=== PATIENT | male | born 1950 | race African-American/Black ===

== ENCOUNTER 2016-11-04 10:16 | Inpatient (IN) | payer OTHER ==
[2016-11-04 11:28] VITALS: BMI 25.9
--- NOTE | 2016-11-04 14:56 | HP ---
COWS - Scale Resting Pulse: 1= [place] 81-100 Sweatin=Flushed/Facial Moisture Restless Observation: 3= Extraneous Movement Pupil Size: 2= Moderately Dilated Bone or Joint Aches: 2= Severe Diffuse Aches Runny Nose/ Eye Tearin= Runny Nose/Eyes GI Upset > 30mins: 3= Vomiting/Diarrhea Tremor Observation: 2= Slight Tremor Visible Yawning Observation: 2= >3x During Session Anxiety or Irritability: 2=Irritable/Anxious Goose Flesh Skin: 0=Smooth Skin COWS Score: 21 Admission ROS BHS - HPI Chief Complaint: i need help to stop using heroin Allergies/Adverse Reactions: Allergies Allergy/AdvReac Type Severity Reaction Status Date / Time Penicillins Allergy Hives Verified 11/04/16 12:20 History of Present Illness: THIS 66 YEARS OLD BLACK MALE WITH HEROIN DEPENDENCE,WITHDRAWAL SYMPTOM,LAST DETOX 02/27 [facility] BLINDNESS HIV SINCE 1988 HEPATITIS C LONGEST PERIOD OF SOBRIETY 9 MONTHS - Ebola screening Have you traveled outside of the country in the last 21 days: No (N) Have you had contact with anyone from an Ebola affected area: No Have you been sick,other than usual withdrawal symptoms: No Do you have a fever: No - Review of Systems Constitutional: Chills, Loss of Appetite, Night Sweats, Weakness, Unintentional Wgt. Loss EENT: reports: Hearing Loss, Nose Congestion, Other (BLINDNESS BOTH) Respiratory: reports: No Symptoms reported Cardiac: reports: No Symptoms Reported GI: reports: Diarrhea, Abdominal cramping : reports: No Symptoms Reported Musculoskeletal: reports: Back Pain, Joint Pain, Muscle Pain, Joint Stiffness Integumentary: reports: Dryness Neuro: reports: Headache, Tremors Endocrine: reports: No Symptoms Reported Hematology: reports: No Symptoms Reported Psychiatric: reports: No Sypmtoms Reported, other (INSOMNIA) Patient History - Patient Medical History Hx Anemia: No Hx Asthma: No Hx Chronic Obstructive Pulmonary Disease (COPD): No Hx Cancer: No Hx Cardiac Disorders: No Hx Congestive Heart Failure: No Hx Hypertension: Yes (norvasc 5 mg daily) Hx Hypercholesterolemia: No Hx Pacemaker: No HX Cerebrovascular Accident: No Hx Seizures: No Hx Dementia: No Hx Diabetes: No Hx Gastrointestinal Disorders: No Hx Liver Disease: Yes Hx Genitourinary Disorders: No Hx Sexually Transmitted Disorders: No Hx Renal Disease (ESRD): No Hx Thyroid Disease: No Hx Human Immunodeficiency Virus (HIV): Yes (SINCE 1989) Hx Hepatitis C: Yes (treated) Hx Depression: Yes Hx Suicide Attempt: No Hx Bipolar Disorder: No Hx Schizophrenia: No Other Medical History: INSOMNIA,NO HOMICIDAL,NO SUICIDAL - Patient Surgical History Past Surgical History: Yes Hx Neurologic Surgery: No Hx Cataract Extraction: No Hx Cardiac Surgery: No Hx Lung Surgery: No Hx Breast Surgery: No Hx Breast Biopsy: No Hx Abdominal Surgery: No Hx Appendectomy: No Hx Cholecystectomy: No Hx Genitourinary Surgery: No Hx Section: No Hx Orthopedic Surgery: Yes (right ankle broken 90's has screws placed) Other Surgical History: detached retina/14 eye surgeries Anesthesia Reaction: No - PPD History Previous Implant?: Yes Documented Results: Negative w/o proof Date: 05/11/15 Results: 0 mm PPD to be Administered?: Yes - Smoking Cessation Smoking history: Current every day smoker Have you smoked in the past 12 months: Yes Aproximately how many cigarettes per day: 6 Cigars Per Day: 0 Hx Chewing Tobacco Use: No Initiated information on smoking cessation: Yes 'Breaking Loose' booklet given: 11/04/16 - Substance & Tx. History Hx Alcohol Use: No Hx Substance Use: Yes Substance Use Type: Cocaine, Heroin, Marijuana - Substances Abused Heroin Route: Inhalation Frequency: Daily Amount used: 5-6 bags Age of first use: 16 Date of Last Use: 11/03/16 Cocaine Route: Inhalation Frequency: Daily Amount used: 50$ Age of first use: 16 Date of Last Use: 10/21/16 Marijuana/Hashish Route: Smoking Frequency: 1-2 times per week Amount used: 5$ Age of first use: 18 Date of Last Use: 10/28/16 Family Disease History - Family Disease History Family History: Denies Family Disease History: Other: Grandparent (blindness), Father, Mother Admission Physical Exam S - Vital Signs Vital Signs: Vital Signs - 24 hr 11/04/16 11:25 Temperature 96.6 F L Pulse Rate 73 Respiratory 20 Rate Blood Pressure 127/74 - Physical General Appearance: Yes: Moderate Distress, Tremorous, Irritable, Sweating, Anxious HEENTM: Yes: Nasal Congestion, Other (BLINDNESS) Respiratory: Yes: Lungs Clear Neck: Yes: Within Normal Limits Breast: Yes: Within Normal Limits Cardiology: Yes: Within Normal Limits, Regular Rhythm, Regular Rate, S1, S2 Abdominal: Yes: Normal Bowel Sounds, Non Tender, Flat, Soft Genitourinary: Yes: Within Normal Limits Back: Yes: Muscle Spasm Musculoskeletal: Yes: Back pain, Joint Stiffness, Muscle Pain Extremities: Yes: Tremors Neurological: Yes: lift builder whole II-XII NML intact, Fully Oriented, Alert, Motor Strength 5/5 Integumentary: Yes: Dry Lymphatic: Yes: Within Normal Limits - Diagnostic (1) Opioid dependence with withdrawal Current Visit: Yes Status: Acute (2) Blindness, legal Current Visit: No Status: Chronic Comment: no current treatment (3) HIV disease Current Visit: No Status: Chronic Comment: on meds, followed by [facility] (4) Hepatitis C infection Current Visit: No Status: Chronic Comment: treated (5) Hypertension Current Visit: No Status: Chronic Comment: on meds, stable (6) Nicotine dependence Current Visit: No Status: Chronic Qualifiers: Nicotine product type: cigarettes Substance use status: uncomplicated Qualified Code(s): F17.210 - Nicotine dependence, cigarettes, uncomplicated Comment: counseled cessation - he is trying to cut down - plans to quit on his birthday Cleared for Admission [facility] - Detox or Rehab [facility] Level of Care: Medically Managed Detox Regimen/Protocol: Methadone [facility] Breath Alcohol Content Breath Alcohol Content: 0 Urine Drug Screen - Results Urine Drug Screen Results: THC-Marijuana, ELY-Cocaine, OPI-Opiates, OXY- Oxycodone
[2016-11-04] MEDS ORDERED: IBUPROFEN 400 MG TABLET (FP) PO PRN (15:07)
[2016-11-04] MEDS ORDERED: MAGNESIUM CITRATE 300 ML BOTTLE PO PRN (15:07)
[2016-11-04] MEDS ORDERED: LOPERAMIDE HCL 2 MG CAPSULE PO PRN (15:07)
[2016-11-04] MEDS ORDERED: MAGNESIUM HYDROX 2400MG/30ML ORAL SUSPENSION 30 ML CUP PO PRN (15:07)
[2016-11-04] MEDS ORDERED: MENTHOL/PHENOL 1 EACH UD MM PRN (15:07)
[2016-11-04] MEDS ORDERED: diphenhydrAMINE HCL 50 MG CAPSULE PO PRN (15:07)
[2016-11-04] MEDS ORDERED: guaiFENesin/D-METHORPHAN HB 10 ML UNIT-DOSE CUPS PO PRN (15:07)
[2016-11-04] MEDS ORDERED: P-EPHED 60MG/TRIPROLIDI 2.5MG TABLET PO PRN (15:07)
[2016-11-04] MEDS ORDERED: MAG HYDROX/AL HYDROX/SIMETH 30 ML UNIT-DOSE CUP PO PRN (15:07)
[2016-11-04] MEDS ORDERED: ACETAMINOPHEN 325 MG TABLET (FP) PO PRN (15:07)
[2016-11-04] MEDS ORDERED: PATIENT'S OWN MEDICATION (NON-FORMULARY) (Diclofenac Sodium [Voltaren] 100 GM) TP PRN (15:14)
[2016-11-04] MEDS ORDERED: AMMONIUM LACTATE 12% LOTION 225 GM BOTTLE TP SCH (15:15)
[2016-11-04] MEDS ORDERED: METHADONE HCL 10 MG TABLET (FOR DETOX USE ONLY) PO ONE ×2 (15:16→23:00)
[2016-11-04] MEDS: diazePAM 5 MG TABLET PO PRN ×2 (15:45→20:03)
[2016-11-04] MEDS ORDERED: NICOTINE POLACRILEX 2 MG GUM BUC PRN (17:28)
[2016-11-04 18:14] LABS: URINE APPEARANCE CLEAR; URINE BILIRUBIN NEGATIVE (NEGATIVE); URINE BLOOD NEGATIVE (NEGATIVE); URINE COLOR YELLOW; URINE GLUCOSE (UA) NEGATIVE (NEGATIVE); URINE KETONE NEGATIVE (NEGATIVE); URINE NITRITE NEGATIVE (NEGATIVE); URINE PROTEIN NEGATIVE (NEGATIVE); URINE UROBILINOGEN NEGATIVE E.U./dl (0.2-1.0)
[2016-11-04 18:16] LABS: URINE LEUK ESTERASE 1+ (NEGATIVE)
[2016-11-04 18:18] LABS: URINE RBC 1 /hpf (0-3); URINE WBC 13 /hpf (3-5)
[2016-11-04] MEDS: METHYL SALICYLATE/MENTHOL OINT 30 GM TUBE TP SCH (20:04)
[2016-11-04] MEDS: THIAMINE HCL 100 MG TABLET (FP) PO SCH (22:36)
[2016-11-04] MEDS: HYDROCORTISONE 1% TOPICAL CREAM 30 GM TUBE TP SCH (22:36)
[2016-11-04] MEDS: AMMONIUM LACTATE 12% LOTION 225 GM BOTTLE TP SCH (22:37)
[2016-11-05] MEDS: diazePAM 5 MG TABLET PO PRN ×5 (01:29→22:25)
[2016-11-05] MEDS ORDERED: METHADONE HCL 10 MG TABLET (FOR DETOX USE ONLY) PO ONE (10:00)
[2016-11-05 10:13] LABS: MCH 31.6 pg (25.7-33.7); MCHC 33.3 g/dl (32.0-35.9); MEAN CELL VOLUME 94.7 fl (80-96); MEAN PLT VOLUME 10.4 fl (7.5-11.1); PLATELET COUNT 110 K/MM3 (134-434); RDW 14.6 % (11.9-15.9)
[2016-11-05] MEDS: HYDROCORTISONE 1% TOPICAL CREAM 30 GM TUBE TP SCH ×2 (10:31→22:26)
[2016-11-05 10:32] LABS: ALBUMIN 3.1 g/dl (3.4-5.0); BILIRUBIN,TOTAL 0.3 mg/dL (0.2-1.0); CALCIUM 8.2 mg/dL (8.5-10.1); CREATININE 1.3 mg/dL (0.7-1.3); TOT PROT 6.3 g/dl (6.4-8.2)
[2016-11-05] MEDS: PRENATAL VITAMINS W/ FOLIC ACID TABLET (FP) PO SCH (10:32)
[2016-11-05] MEDS: CHOLECALCIFEROL (VITAMIN D3) 400 UNIT TABLET (FP) PO SCH (10:32)
[2016-11-05] MEDS: METHYL SALICYLATE/MENTHOL OINT 30 GM TUBE TP SCH (10:32)
[2016-11-05] MEDS: amLODIPine BESYLATE 5 MG TABLET (FP) PO SCH (10:32)
[2016-11-05] MEDS: NICOTINE 14 MG/24 HOURS TOPICAL PATCH TD SCH (10:33)
[2016-11-05] MEDS: AMMONIUM LACTATE 12% LOTION 225 GM BOTTLE TP SCH ×2 (10:34→22:26)
--- NOTE | 2016-11-05 11:20 | PN ---
S COWS - Scale Resting Pulse: 0= [place] 80 or Below Sweatin= Chills/Flushing Restless Observation: 3= Extraneous Movement Pupil Size: 2= Moderately Dilated Bone or Joint Aches: 4=Acute Joint/Muscle Pain Runny Nose/ Eye Tearin= Nasal Congestion GI Upset > 30mins: 1= Stomach Cramp Tremor Observation of Outstretched Hands: 2= Slight Tremor Visible Yawning Observation: 1= 1-2x During Session Anxiety or Irritability: 2=Irritable/Anxious Goose Flesh Skin: 0=Smooth Skin COWS Score: 17 BHS Progress Note (SOAP) Subjective: ANXIETY,SWEATS, RESONDING WELL TO DETOX PROTOCOL. LEGALLY BLIND AND WALKS WITH GUIDE STICK. Objective: 11/05/16 11:19 Vital Signs Temperature 96.0 F L 11/05/16 06:44 Pulse Rate 72 11/05/16 11:10 Respiratory Rate 18 11/05/16 11:10 Blood Pressure 111/72 11/05/16 11:10 O2 Sat by Pulse Oximetry (%) Laboratory Last Values WBC 6.0 K/mm3 (4.0-10.0) 11/05/16 08:00 RBC 4.09 M/mm3 (4.00-5.60) 11/05/16 08:00 Hgb 12.9 GM/dL (11.7-16.9) 11/05/16 08:00 Hct 38.7 % (35.4-49) 11/05/16 08:00 MCV 94.7 fl (80-96) 11/05/16 08:00 MCHC 33.3 g/dl (32.0-35.9) 11/05/16 08:00 RDW 14.6 % (11.9-15.9) 11/05/16 08:00 Plt Count 110 K/MM3 (134-434) L 11/05/16 08:00 MPV 10.4 fl (7.5-11.1) D 11/05/16 08:00 Sodium 140 mmol/L (136-145) 11/05/16 08:00 Potassium 4.2 mmol/L (3.5-5.1) 11/05/16 08:00 Chloride 105 mmol/L (98-107) 11/05/16 08:00 Carbon Dioxide 27 mmol/L (21-32) 11/05/16 08:00 Anion Gap 8 (8-16) 11/05/16 08:00 BUN 17 mg/dL (7-18) D 11/05/16 08:00 Creatinine 1.3 mg/dL (0.7-1.3) D 11/05/16 08:00 Creat Clearance w eGFR 55.58 (>60) 11/05/16 08:00 Random Glucose 128 mg/dL (74-106) H D 11/05/16 08:00 Calcium 8.2 mg/dL (8.5-10.1) L 11/05/16 08:00 Total Bilirubin 0.3 mg/dL (0.2-1.0) D 11/05/16 08:00 AST 12 U/L (15-37) L D 11/05/16 08:00 ALT 13 U/L (12-78) 11/05/16 08:00 Alkaline Phosphatase 56 U/L (45-117) 11/05/16 08:00 Total Protein 6.3 g/dl (6.4-8.2) L 11/05/16 08:00 Albumin 3.1 g/dl (3.4-5.0) L 11/05/16 08:00 Urine Color Yellow 11/04/16 17:00 Urine Appearance Clear 11/04/16 17:00 Urine pH 5.0 (5.0-8.0) 11/04/16 17:00 Ur Specific [place] 1.020 (1.001-1.035) 11/04/16 17:00 Urine Protein Negative (NEGATIVE) 11/04/16 17:00 Urine Glucose (UA) Negative (NEGATIVE) 11/04/16 17:00 Urine Ketones Negative (NEGATIVE) 11/04/16 17:00 Urine Blood Negative (NEGATIVE) 11/04/16 17:00 Urine Nitrite Negative (NEGATIVE) 11/04/16 17:00 Urine Bilirubin Negative (NEGATIVE) 11/04/16 17:00 Urine Urobilinogen Negative E.U./dl (0.2-1.0) 11/04/16 17:00 Ur Leukocyte Esterase 1+ (NEGATIVE) H 11/04/16 17:00 Urine RBC 1 /hpf (0-3) 11/04/16 17:00 Urine WBC 13 /hpf (3-5) 11/04/16 17:00 Ur Epithelial Cells Rare /hpf (FEW) 11/04/16 17:00 Assessment: 11/05/16 11:19 WITHDRAWAL SX Plan: CONTINUE DETOX REPEAT UA TODAY. MAINTAIN SAFETY.
--- NOTE | 2016-11-05 12:52 | CONSULT ---
[facility] Psychiatric Consult - Data Date of interview: 11/05/16 Admission source: [facility] Identifying data: Readmission to [facility] for this 66 y/o AA male seeking detox treatment on for heroin,cocaine and marijuana dependence.Patient is ,a father of two,domiciled,disabled and supported on his nursing home benefits. Substance Abuse History: - Smoking Cessation. Smoking history: Current every day smoker. Have you smoked in the past 12 months: Yes. Aproximately how many cigarettes per day: 6. Cigars Per Day: 0. Hx Chewing Tobacco Use: No. Initiated information on smoking cessation: Yes. 'Breaking Loose' booklet given : 11/04/16. - Substance & Tx. History. Hx Alcohol Use: No. Hx Substance Use: Yes. Substance Use Type: Cocaine, Heroin, Marijuana. - Substances Abused. Heroin. Route: Inhalation. Frequency: Daily. Amount used: 5-6 bags. Age of first use: 16. Date of Last Use: 11/03/16. Cocaine. Route: Inhalation. Frequency: Daily. Amount used: 50$. Age of first use: 16. Date of Last Use: 10/21/16. Marijuana/Hashish. Route: Smoking. Frequency: 1-2 times per week. Amount used: 5$. Age of first use: 18. Date of Last Use: 10/28/16. Confirmed by the patient in this interview. 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 Psychiatric History: Patient denies history of psychiatric hospitalizations.He is followed at the [facility] (Dr Samra Conti) on a regimen of remeron 15 mg/hs + seroquel 25 mg/hs + zolpidem 10 mg/hs.No history of suicide attempts. Physical/Sexual Abuse/Trauma History: Patient denies. Additional Comment: Urine Drug Screen Results: THC-Marijuana, ELY-Cocaine, OPI- Opiates, OXY-Oxycodone.Noted. Mental Status Exam - Mental Status Exam Alert and Oriented to: Time, Place, Person Cognitive Function: Good Patient Appearance: Well Groomed Mood: Hopeful, Euthymic Affect: Normal Range Patient Behavior: Appropriate, Cooperative (friendly on approach) Speech Pattern: Clear Voice Loudness: Normal Thought Process: Goal Oriented Thought Disorder: Not Present Hallucinations: Denies Suicidal Ideation: Denies Homicidal Ideation: Denies Insight/Judgement: Poor (evidenced by his continuous use of drugs despite his knowledge about the consequences) Sleep: Fair Appetite: Good Muscle strength/Tone: Normal Gait/Station: Other (uses a cane to find directions due to blindness) Psychiatric Findings - Problem List ([place] 1, 2,3) (1) Opioid dependence with withdrawal Current Visit: Yes Status: Acute (2) Nicotine dependence Current Visit: Yes Status: Acute Qualifiers: Nicotine product type: cigarettes Substance use status: uncomplicated Qualified Code(s): F17.210 - Nicotine dependence, cigarettes, uncomplicated Comment: counseled cessation - he is trying to cut down - plans to quit on his birthday (3) Cocaine dependence Current Visit: Yes Status: Acute (4) Marijuana dependence Current Visit: Yes Status: Acute (5) Back pain Current Visit: Yes Status: Chronic Comment: MRI results of 08/15 reviewed (disc dessication, facet hypertrophy, thickened ligamentum flavum, spondylosis, osteophytes, spinal stenosis), cont voltaren, anti-inflammatory diet tylenol, discussed gentle stretches and sit ups which he is now willing to do , did PT in past but did not help) off opiates due to aberrant toxicology MRI results noted and reviewed with patient who wishes to continue voltaren gel - obtained and using lumbar brace, uses mother's heating pad, does not want flexeril or other muscle relaxers or celebrex "I'm fine with what I'm on" (6) Blindness, legal Current Visit: Yes Status: Chronic Comment: no current treatment (7) Depressive disorder Current Visit: Yes Status: Chronic (8) HIV disease Current Visit: Yes Status: Chronic Comment: on meds, [facility] by [facility] (9) Hepatitis C infection Current Visit: Yes Status: Chronic Comment: treated (10) Hypertension Current Visit: Yes Status: Chronic Comment: on meds, stable (11) Musculoskeletal pain Current Visit: Yes Status: Chronic Comment: antiinflammatory diet reviewed -he will try to make one change: increase his 'greens' - Initial Treatment Plan Initial Treatment Plan: Psychoeducation.Detoxification.Medications :seroquel 25 mg po hs + mirtazapine 15 mg po hs.Zolpidem is held until further orders.Side effects/benefits discusssed with the patient.Made aware of the risk of accidental falls from sedation and advised to alert staff if drowsiness/ lighthadedness.Patient agrees to follow this treatment course.Observation.Fall precautions.Previous notes from Dr Tyler are reviewed.Medications verified.No scripts necessary at discharge (refills already available).
[2016-11-05 13:28] LABS: URINE APPEARANCE CLEAR; URINE BILIRUBIN NEGATIVE (NEGATIVE); URINE BLOOD NEGATIVE (NEGATIVE); URINE COLOR LTYELLOW; URINE GLUCOSE (UA) NEGATIVE (NEGATIVE); URINE KETONE NEGATIVE (NEGATIVE); URINE NITRITE NEGATIVE (NEGATIVE); URINE PROTEIN NEGATIVE (NEGATIVE); URINE UROBILINOGEN NEGATIVE E.U./dl (0.2-1.0)
[2016-11-05 13:40] LABS: URINE LEUK ESTERASE TRACE (NEGATIVE)
[2016-11-05 13:55] LABS: URINE MUCUS RARE; URINE RBC <1 /hpf (0-3); URINE WBC 1 /hpf (3-5)
--- NOTE | 2016-11-05 21:36 | EKG ---
Test Reason : Blood Pressure : / mmHG Vent. Rate : 060 BPM Atrial Rate : 060 BPM P-R Int : 156 ms QRS Dur : 084 ms QT Int : 436 ms P-R-T Axes : 052 048 059 degrees QTc Int : 436 ms NORMAL SINUS RHYTHM NORMAL ECG WHEN COMPARED WITH ECG OF 31-JUL-2012 01:50, NO SIGNIFICANT CHANGE WAS FOUND Confirmed by YEISON KLEIN MD ([id number]) on 11/05/2016 9:35:51 PM Referred By: Confirmed By:YEISON KLEIN MD
[2016-11-05] MEDS: THIAMINE HCL 100 MG TABLET (FP) PO SCH (22:25)
[2016-11-05] MEDS: MIRTAZAPINE 15 MG TABLET (FP) PO SCH (22:25)
[2016-11-05] MEDS: QUEtiapine FUMARATE 25 MG TABLET (FP) PO SCH (22:25)
[2016-11-06] MEDS: diazePAM 5 MG TABLET PO PRN ×3 (03:56→15:08)
[2016-11-06] MEDS ORDERED: METHADONE HCL 5 MG TABLET (FOR DETOX USE ONLY) PO ONE (10:00)
[2016-11-06] MEDS: PRENATAL VITAMINS W/ FOLIC ACID TABLET (FP) PO SCH (10:35)
[2016-11-06] MEDS: METHYL SALICYLATE/MENTHOL OINT 30 GM TUBE TP SCH (10:35)
[2016-11-06] MEDS: amLODIPine BESYLATE 5 MG TABLET (FP) PO SCH (10:35)
[2016-11-06] MEDS: HYDROCORTISONE 1% TOPICAL CREAM 30 GM TUBE TP SCH ×2 (10:35→22:41)
[2016-11-06] MEDS: AMMONIUM LACTATE 12% LOTION 225 GM BOTTLE TP SCH ×2 (10:36→22:41)
[2016-11-06] MEDS: NICOTINE 14 MG/24 HOURS TOPICAL PATCH TD SCH (10:36)
[2016-11-06] MEDS: CHOLECALCIFEROL (VITAMIN D3) 400 UNIT TABLET (FP) PO SCH (11:30)
--- NOTE | 2016-11-06 11:42 | PN ---
S COWS - Scale Resting Pulse: 0= [place] 80 or Below Sweatin= Chills/Flushing Restless Observation: 3= Extraneous Movement Pupil Size: 2= Moderately Dilated Bone or Joint Aches: 4=Acute Joint/Muscle Pain Runny Nose/ Eye Tearin= Nasal Congestion GI Upset > 30mins: 1= Stomach Cramp Tremor Observation of Outstretched Hands: 1= Tremor [place], Not Seen Yawning Observation: 1= 1-2x During Session Anxiety or Irritability: 2=Irritable/Anxious Goose Flesh Skin: 0=Smooth Skin COWS Score: 16 S Progress Note (SOAP) Subjective: ANXIETY,SWEATS/CHILLS. Objective: 11/06/16 11:38 Vital Signs Temperature 77 F L 11/06/16 10:50 Pulse Rate 77 11/06/16 10:50 Respiratory Rate 20 11/06/16 10:50 Blood Pressure 112/77 11/06/16 10:50 O2 Sat by Pulse Oximetry (%) Laboratory Last Values WBC 6.0 K/mm3 (4.0-10.0) 11/05/16 08:00 RBC 4.09 M/mm3 (4.00-5.60) 11/05/16 08:00 Hgb 12.9 GM/dL (11.7-16.9) 11/05/16 08:00 Hct 38.7 % (35.4-49) 11/05/16 08:00 MCV 94.7 fl (80-96) 11/05/16 08:00 MCHC 33.3 g/dl (32.0-35.9) 11/05/16 08:00 RDW 14.6 % (11.9-15.9) 11/05/16 08:00 Plt Count 110 K/MM3 (134-434) L 11/05/16 08:00 MPV 10.4 fl (7.5-11.1) D 11/05/16 08:00 Sodium 140 mmol/L (136-145) 11/05/16 08:00 Potassium 4.2 mmol/L (3.5-5.1) 11/05/16 08:00 Chloride 105 mmol/L (98-107) 11/05/16 08:00 Carbon Dioxide 27 mmol/L (21-32) 11/05/16 08:00 Anion Gap 8 (8-16) 11/05/16 08:00 BUN 17 mg/dL (7-18) D 11/05/16 08:00 Creatinine 1.3 mg/dL (0.7-1.3) D 11/05/16 08:00 Creat Clearance w eGFR 55.58 (>60) 11/05/16 08:00 Random Glucose 128 mg/dL (74-106) H D 11/05/16 08:00 Calcium 8.2 mg/dL (8.5-10.1) L 11/05/16 08:00 Total Bilirubin 0.3 mg/dL (0.2-1.0) D 11/05/16 08:00 AST 12 U/L (15-37) L D 11/05/16 08:00 ALT 13 U/L (12-78) 11/05/16 08:00 Alkaline Phosphatase 56 U/L (45-117) 11/05/16 08:00 Total Protein 6.3 g/dl (6.4-8.2) L 11/05/16 08:00 Albumin 3.1 g/dl (3.4-5.0) L 11/05/16 08:00 Urine Color [place] 11/05/16 12:15 Urine Appearance Clear 11/05/16 12:15 Urine pH 6.0 (5.0-8.0) 11/05/16 12:15 Ur Specific [place] 1.010 (1.001-1.035) 11/05/16 12:15 Urine Protein Negative (NEGATIVE) 11/05/16 12:15 Urine Glucose (UA) Negative (NEGATIVE) 11/05/16 12:15 Urine Ketones Negative (NEGATIVE) 11/05/16 12:15 Urine Blood Negative (NEGATIVE) 11/05/16 12:15 Urine Nitrite Negative (NEGATIVE) 11/05/16 12:15 Urine Bilirubin Negative (NEGATIVE) 11/05/16 12:15 Urine Urobilinogen Negative E.U./dl (0.2-1.0) 11/05/16 12:15 Ur Leukocyte Esterase Trace (NEGATIVE) H 11/05/16 12:15 Urine RBC <1 /hpf (0-3) 11/05/16 12:15 Urine WBC 1 /hpf (3-5) 11/05/16 12:15 Ur Epithelial Cells Rare /hpf (FEW) 11/05/16 12:15 Urine Mucus Rare 11/05/16 12:15 RPR Titer Nonreactive (NONREACTIVE) 11/05/16 08:00 REPEAT UA SLIGHT IMPROVEMENT UC PENDING Assessment: 11/06/16 11:42 WITHDRAWAL SX Plan: CONTINUE DETOX
[2016-11-06] MEDS: THIAMINE HCL 100 MG TABLET (FP) PO SCH (22:41)
[2016-11-06] MEDS: QUEtiapine FUMARATE 25 MG TABLET (FP) PO SCH (22:41)
[2016-11-06] MEDS: MIRTAZAPINE 15 MG TABLET (FP) PO SCH (22:41)
[2016-11-07] MEDS: diazePAM 5 MG TABLET PO PRN (06:00)
[2016-11-07] MEDS ORDERED: METHADONE HCL 5 MG TABLET (FOR DETOX USE ONLY) PO ONE (10:00)
[2016-11-07] MEDS: amLODIPine BESYLATE 5 MG TABLET (FP) PO SCH (11:06)
[2016-11-07] MEDS: PRENATAL VITAMINS W/ FOLIC ACID TABLET (FP) PO SCH (11:06)
[2016-11-07] MEDS: METHYL SALICYLATE/MENTHOL OINT 30 GM TUBE TP SCH (11:06)
[2016-11-07] MEDS: NICOTINE 14 MG/24 HOURS TOPICAL PATCH TD SCH (11:07)
[2016-11-07] MEDS: HYDROCORTISONE 1% TOPICAL CREAM 30 GM TUBE TP SCH ×2 (11:07→22:35)
[2016-11-07] MEDS: CHOLECALCIFEROL (VITAMIN D3) 400 UNIT TABLET (FP) PO SCH (11:07)
[2016-11-07] MEDS: AMMONIUM LACTATE 12% LOTION 225 GM BOTTLE TP SCH ×2 (11:07→22:36)
--- NOTE | 2016-11-07 11:31 | PN ---
BHS Progress Note (SOAP) Subjective: DETOX PROCEEDING WELL, DECREASED ANXIETY,TREMORS. Objective: 11/07/16 11:30 Vital Signs Temperature 95.8 F L 11/07/16 06:50 Pulse Rate 90 11/07/16 10:06 Respiratory Rate 18 11/07/16 10:06 Blood Pressure 130/86 11/07/16 10:06 O2 Sat by Pulse Oximetry (%) Assessment: 11/07/16 11:30 WITHDRAWAL SX Plan: CONTINUE DETOX
[2016-11-07] MEDS: THIAMINE HCL 100 MG TABLET (FP) PO SCH (22:35)
[2016-11-07] MEDS: MIRTAZAPINE 15 MG TABLET (FP) PO SCH (22:35)
[2016-11-07] MEDS: QUEtiapine FUMARATE 25 MG TABLET (FP) PO SCH (22:35)
[2016-11-08] MEDS ORDERED: METHADONE HCL 10 MG TABLET (FOR DETOX USE ONLY) PO ONE (10:00)
[2016-11-08] MEDS: amLODIPine BESYLATE 5 MG TABLET (FP) PO SCH (10:53)
[2016-11-08] MEDS: METHYL SALICYLATE/MENTHOL OINT 30 GM TUBE TP SCH (10:53)
[2016-11-08] MEDS: HYDROCORTISONE 1% TOPICAL CREAM 30 GM TUBE TP SCH ×2 (10:53→22:51)
[2016-11-08] MEDS: AMMONIUM LACTATE 12% LOTION 225 GM BOTTLE TP SCH ×2 (10:53→22:52)
[2016-11-08] MEDS: CHOLECALCIFEROL (VITAMIN D3) 400 UNIT TABLET (FP) PO SCH (10:54)
[2016-11-08] MEDS: PRENATAL VITAMINS W/ FOLIC ACID TABLET (FP) PO SCH (10:54)
[2016-11-08] MEDS: NICOTINE 14 MG/24 HOURS TOPICAL PATCH TD SCH (10:54)
--- NOTE | 2016-11-08 11:23 | PN ---
BHS Progress Note (SOAP) Subjective: DECREASED ANXIETY,TREMORS,SWEATS. Objective: 11/08/16 11:23 Vital Signs Temperature 96.2 F L 11/08/16 10:52 Pulse Rate 83 11/08/16 10:52 Respiratory Rate 20 11/08/16 10:52 Blood Pressure 119/77 11/08/16 10:52 O2 Sat by Pulse Oximetry (%) Assessment: 11/08/16 11:23 DECREASED WITHDRAWAL SX Plan: CONTINUE DETOX
[2016-11-08] MEDS: QUEtiapine FUMARATE 25 MG TABLET (FP) PO SCH (22:52)
[2016-11-08] MEDS: THIAMINE HCL 100 MG TABLET (FP) PO SCH (22:52)
[2016-11-08] MEDS: MIRTAZAPINE 15 MG TABLET (FP) PO SCH (22:52)
[2016-11-09] MEDS ORDERED: METHADONE HCL 5 MG TABLET (FOR DETOX USE ONLY) PO ONE (06:00)
[2016-11-09 09:57] VITALS: BP 123/84; PULSE 87; TEMP 98.2
--- NOTE | 2016-11-09 10:28 | DS ---
[facility] Detox Discharge Summary Admission Date: 11/04/16 Discharge Date: 11/09/16 - History Present History: Cocaine Dependence, Opioid Dependence Pertinent Past History: Blindness HIV Hep C (Treated) HTN Smoker Back Pain - Physical Exam Results Vital Signs: Vital Signs Temperature 98.2 F 11/09/16 09:56 Pulse Rate 87 11/09/16 09:56 Respiratory Rate 18 11/09/16 09:56 Blood Pressure 123/84 11/09/16 09:56 O2 Sat by Pulse Oximetry (%) Pertinent Admission Physical Exam Findings: Withdrawal Symptoms - Treatment Hospital Course: Detox Protocol Followed, Detoxed Safely, Responded well, Discharged Condition Good - Medication Discharge Medications: Ambulatory Orders Abacavir/Dolutegravir/Lamivudi [Triumeq Tablet] 1 each PO DAILY #30 tablet 06/04 Ammonium Lactate Lotion [Lac-Hydrin 12% Lotion -] 1 applic TP ASDIR #1 bottle Guaifenesin [Robafen] 100 mg PO TID #118 ml MDD 5ml 07/02/16 Diclofenac Sodium [Voltaren] 100 gm TP TID PRN 10/03/16 Amlodipine Besylate [Norvasc -] 5 mg PO DAILY #30 tablet 10/04/16 Cholecalciferol (Vitamin D3) [Vitamin D3 -] 800 unit PO DAILY #30 tablet Hydrocortisone [Cortisone] 56 gm TP BID #30 cream..g. 10/04/16 Mirtazapine [Remeron -] 15 mg PO DAILY #30 tablet 10/23/16 Quetiapine Fumarate [Seroquel -] 25 mg PO HS #30 tablet MDD 25 10/23/16 Zolpidem Tartrate [Ambien] 10 mg PO HS #30 tablet MDD 1 10/23/16 - Diagnosis (1) Cocaine dependence Status: Acute (2) Marijuana dependence Status: Acute (3) Nicotine dependence Status: Acute Qualifiers: Nicotine product type: cigarettes Substance use status: uncomplicated Qualified Code(s): F17.210 - Nicotine dependence, cigarettes, uncomplicated (4) Opioid dependence with withdrawal Status: Acute (5) Back pain Status: Chronic (6) Blindness, legal Status: Chronic (7) HIV disease Status: Chronic (8) Hepatitis C infection Status: Chronic (9) Hypertension Status: Chronic (10) Musculoskeletal pain Status: Chronic (11) Depressive disorder Status: Chronic - AMA Did Patient Leave Against Medical Advice: No
== END 2016-11-09 08:58 | disposition home or self-care (01) | DRG 897 ==
LOC: YASAS 10:16 → Y3N 12:03
PROVIDERS: ADMIT Internal Medicine; ATTEND Internal Medicine
PROC: HZ2ZZZZ Detoxification Services for Substance Abuse Treatment (ICD-10-PCS; principal; 2016-11-04)
DX: F11.23 Opioid dependence with withdrawal (principal); F14.20 Cocaine dependence, uncomplicated; F12.20 Cannabis dependence, uncomplicated; F17.210 Nicotine dependence, cigarettes, uncomplicated; F32.9 Major depressive disorder, single episode, unspecified; I10 Essential (primary) hypertension; Z21 Asymptomatic human immunodeficiency virus [HIV] infection status; B18.2 Chronic viral hepatitis C; M54.5 Low back pain; H54.8 Legal blindness, as defined in USA; M79.1 Myalgia
CPT/HCPCS: 36415; 80053; 81003; 81015; 85027; 86593; 87086; 93005; 93010

== ENCOUNTER 2017-01-16 09:21 | Inpatient (IN) | payer OTHER ==
[2017-01-16 10:12] VITALS: BMI 25.6
--- NOTE | 2017-01-16 11:54 | HP ---
COWS - Scale Resting Pulse: 0= [place] 80 or Below Sweatin=Flushed/Facial Moisture Restless Observation: 1= Difficult to Sit Still Pupil Size: 0= Normal to Room Light (opacity of the lens) Bone or Joint Aches: 2= Severe Diffuse Aches Runny Nose/ Eye Tearin= Runny Nose/Eyes GI Upset > 30mins: 2= Nausea/Diarrhea Tremor Observation: 2= Slight Tremor Visible Yawning Observation: 1= 1-2x During Session Anxiety or Irritability: 2=Irritable/Anxious Goose Flesh Skin: 0=Smooth Skin COWS Score: 14 Admission ROS S - HPI Chief Complaint: Withdrawal sx Allergies/Adverse Reactions: Allergies Allergy/AdvReac Type Severity Reaction Status Date / Time Penicillins Allergy Hives Verified 01/16/17 10:43 History of Present Illness: 66 y/o man known to us from previous detox,rehab & attending [facility] in the past is re-admitted for detox.Pt has been in previous detoxes but denies significant period drug free.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 macular degeneration. Exam Limitations: No Limitations - Ebola screening Have you traveled outside of the country in the last 21 days: No Have you had contact with anyone from an Ebola affected area: No Have you been sick,other than usual withdrawal symptoms: No - Review of Systems Constitutional: Diaphoresis EENT: reports: Nose Congestion Respiratory: reports: No Symptoms reported Cardiac: reports: No Symptoms Reported GI: reports: Nausea, Abdominal cramping : reports: No Symptoms Reported Musculoskeletal: reports: Joint Pain Integumentary: reports: Sweating Neuro: reports: Tremors Endocrine: reports: No Symptoms Reported Hematology: reports: No Symptoms Reported Psychiatric: reports: No Sypmtoms Reported Other Systems: Reviewed and Negative Patient History - Patient Medical History Hx Anemia: No Hx Asthma: No Hx Chronic Obstructive Pulmonary Disease (COPD): No Hx Cancer: No Hx Cardiac Disorders: No Hx Congestive Heart Failure: No Hx Hypertension: Yes Hx Hypercholesterolemia: No Hx Pacemaker: No HX Cerebrovascular Accident: No Hx Seizures: No Hx Dementia: No Hx Diabetes: No Hx Gastrointestinal Disorders: No Hx Liver Disease: Yes Hx Genitourinary Disorders: No Hx Sexually Transmitted Disorders: No Hx Renal Disease (ESRD): No Hx Thyroid Disease: No Hx Human Immunodeficiency Virus (HIV): Yes (SINCE 1989) Hx Hepatitis C: Yes (treated) Hx Depression: Yes (seroquel & ambien) Hx Suicide Attempt: No Hx Bipolar Disorder: No Hx Schizophrenia: No - Patient Surgical History Past Surgical History: Yes Hx Neurologic Surgery: No Hx Cataract Extraction: Yes ([facility],corneal transplants) Hx Cardiac Surgery: No Hx Lung Surgery: No Hx Breast Surgery: No Hx Breast Biopsy: No Hx Abdominal Surgery: No Hx Appendectomy: No Hx Cholecystectomy: No Hx Genitourinary Surgery: No Hx Section: No Hx Orthopedic Surgery: Yes (right ankle broken 90's has screws placed) Other Surgical History: detached retina/14 eye surgeries Anesthesia Reaction: No - PPD History Previous Implant?: Yes Documented Results: Negative w/proof Date: 11/06/16 Results: 0 mm PPD to be Administered?: No - Smoking Cessation Smoking history: Current every day smoker Have you smoked in the past 12 months: Yes Aproximately how many cigarettes per day: 7 Cigars Per Day: 0 Hx Chewing Tobacco Use: No Initiated information on smoking cessation: Yes 'Breaking Loose' booklet given: 01/16/17 - Substance & Tx. History Hx Alcohol Use: No Hx Substance Use: Yes Substance Use Type: Cocaine, Heroin Hx Substance Use Treatment: Yes (Detox,OTP) - Substances Abused Heroin Route: Inhalation Frequency: Daily Amount used: 5 bags Age of first use: 15 Date of Last Use: 01/15/17 Cocaine Route: Inhalation Frequency: Daily Amount used: $10 Age of first use: 15 Date of Last Use: 01/14/17 Family Disease History - Family Disease History Family Disease History: Heart Disease: Mother (HTN), Other: Grandparent ( blindness), Father (Liver disease?) Admission Physical Exam [facility] - Vital Signs Vital Signs: Vital Signs - 24 hr 01/16/17 10:08 Temperature 97 F L Pulse Rate 66 Respiratory 20 Rate Blood Pressure 144/86 - Physical General Appearance: Yes: Tremorous, Sweating, Anxious HEENTM: Yes: Nasal Congestion, Rhinorrhea Respiratory: Yes: Chest Non-Tender, Lungs Clear, Normal Breath Sounds Neck: Yes: Supple Breast: Yes: Breast Exam Deferred Cardiology: Yes: Regular Rhythm, Regular Rate, S1, S2 Abdominal: Yes: Normal Bowel Sounds, Non Tender, Soft Genitourinary: Yes: Within Normal Limits Back: Yes: Within Normal Limits Musculoskeletal: Yes: Within Normal Limits Extremities: Yes: Tremors Neurological: Yes: Fully Oriented, Alert Integumentary: Yes: Diaphoresis Lymphatic: Yes: Within Normal Limits - Diagnostic (1) Psoriatic arthritis Current Visit: Yes Status: Acute (2) Cocaine dependence Current Visit: Yes Status: Acute Qualifiers: Substance use status: uncomplicated Qualified Code(s): F14.20 - Cocaine dependence, uncomplicated (3) Nicotine dependence Current Visit: Yes Status: Acute Qualifiers: Nicotine product type: cigarettes Substance use status: uncomplicated Qualified Code(s): F17.210 - Nicotine dependence, cigarettes, uncomplicated Comment: counseled cessation - he is trying to cut down - plans to quit on his birthday (4) Opioid dependence with withdrawal Current Visit: Yes Status: Acute (5) Blindness, legal Current Visit: Yes Status: Chronic Comment: no current treatment (6) HIV disease Current Visit: Yes Status: Chronic Comment: on meds, followed by [facility] (7) Hepatitis C infection Current Visit: Yes Status: Chronic Qualifiers: Viral hepatitis chronicity: chronic Hepatic coma status: without hepatic coma Qualified Code(s): B18.2 - Chronic viral hepatitis C Comment: treated (8) Hypertension Current Visit: Yes Status: Chronic Qualifiers: Hypertension type: essential hypertension Qualified Code(s): I10 - Essential (primary) hypertension Comment: on meds, stable Cleared for Admission [facility] - Detox or Rehab [facility] Level of Care: Medically Managed Detox Regimen/Protocol: Methadone [facility] Breath Alcohol Content Breath Alcohol Content: 0 Urine Drug Screen - Results Drug Screen Negative: No Urine Drug Screen Results: ELY-Cocaine, OPI-Opiates
[2017-01-16] MEDS ORDERED: LOPERAMIDE HCL 2 MG CAPSULE PO PRN (12:09)
[2017-01-16] MEDS ORDERED: NICOTINE POLACRILEX 2 MG GUM BUC PRN (12:09)
[2017-01-16] MEDS ORDERED: ACETAMINOPHEN 325 MG TABLET (FP) PO PRN (12:09)
[2017-01-16] MEDS ORDERED: MAGNESIUM CITRATE 300 ML BOTTLE PO PRN (12:09)
[2017-01-16] MEDS ORDERED: MENTHOL/PHENOL 1 EACH UD MM PRN (12:09)
[2017-01-16] MEDS ORDERED: MAGNESIUM HYDROX 2400MG/30ML ORAL SUSPENSION 30 ML CUP PO PRN (12:09)
[2017-01-16] MEDS ORDERED: hydrOXYzine PAMOATE 50 MG CAPSULE (FP) PO PRN (12:09)
[2017-01-16] MEDS ORDERED: guaiFENesin/D-METHORPHAN HB 10 ML UNIT-DOSE CUPS PO PRN (12:09)
[2017-01-16] MEDS ORDERED: IBUPROFEN 400 MG TABLET (FP) PO PRN (12:09)
[2017-01-16] MEDS ORDERED: MAG HYDROX/AL HYDROX/SIMETH 30 ML UNIT-DOSE CUP PO PRN (12:09)
[2017-01-16] MEDS ORDERED: P-EPHED 60MG/TRIPROLIDI 2.5MG TABLET PO PRN (12:09)
[2017-01-16] MEDS ORDERED: diphenhydrAMINE HCL 50 MG CAPSULE PO PRN (12:09)
[2017-01-16] MEDS ORDERED: METHADONE HCL 10 MG TABLET (FOR DETOX USE ONLY) PO ONE ×2 (12:30→23:00)
[2017-01-16] MEDS: diazePAM 5 MG TABLET PO PRN ×2 (12:58→16:58)
[2017-01-16] MEDS: amLODIPine BESYLATE 5 MG TABLET (FP) PO SCH (12:59)
[2017-01-16] MEDS: NICOTINE 14 MG/24 HOURS TOPICAL PATCH TD SCH (12:59)
--- NOTE | 2017-01-16 14:42 | CONSULT ---
[id number] [facility] Identifying data: This is 66 years old male with no psychiatric hospitalization history, legally blind, intoxicated with: Opioids, Cocaine, Nicotine Substance Abuse History: - Smoking Cessation. Smoking history: Current every day smoker. Have you smoked in the past 12 months: Yes. Aproximately how many cigarettes per day: 7. Cigars Per Day: 0. Hx Chewing Tobacco Use: No. Initiated information on smoking cessation: Yes. 'Breaking Loose' booklet given : 01/16/17. - Substance & Tx. History. Hx Alcohol Use: No. Hx Substance Use: Yes. Substance Use Type: Cocaine, Heroin. Hx Substance Use Treatment: Yes ( Detox,OTP). - Substances Abused. Heroin. Route: Inhalation. Frequency: Daily. Amount used: 5 bags. Age of first use: 15. Date of Last Use: . Cocaine. Route: Inhalation. Frequency: Daily. Amount used: $10. Age of first use: 15. Date of Last Use: 01/14/17 Medical History: HepC+, Proriatic arthritis, LBP, legal blindness, HIV Psychiatric History: Patient reports history of depression and anxiety, reports taking prior to admission: Seroquel 25mg po qhs. Ambien 10mg po qhs. Remeron 15mg po qhs Physical/Sexual Abuse/Trauma History: Denies Additional Comment: Seroquel 25mg po qhs. Ambien 10mg po qhs. Remeron 15mg po qhs Mental Status Exam - Mental Status Exam Alert and Oriented to: Person Cognitive Function: Fair Patient Appearance: Well Groomed Mood: Nervous, Anxious Affect: Labile Patient Behavior: Cooperative Speech Pattern: Appropriate Voice Loudness: Normal Thought Process: Goal Oriented Thought Disorder: Being Controlled Hallucinations: Denies Suicidal Ideation: Denies Homicidal Ideation: Denies Insight/Judgement: Fair Sleep: Difficulty falling asleep Appetite: Weight loss Muscle strength/Tone: Normal Gait/Station: Normal Additional Comments: Seroquel 25mg po qhs. Ambien 10mg po qhs. Remeron 15mg po qhs Psychiatric Findings - Problem List ([place] 1, 2,3) (1) Cocaine dependence Current Visit: Yes Status: Acute Qualifiers: Substance use status: uncomplicated Qualified Code(s): F14.20 - Cocaine dependence, uncomplicated (2) Nicotine dependence Current Visit: Yes Status: Acute Qualifiers: Nicotine product type: cigarettes Substance use status: uncomplicated Qualified Code(s): F17.210 - Nicotine dependence, cigarettes, uncomplicated Comment: counseled cessation - he is trying to cut down - plans to quit on his birthday (3) Opioid dependence with withdrawal Current Visit: Yes Status: Acute (4) Marijuana dependence Current Visit: No Status: Acute (5) Drug-induced mood disorder Current Visit: Yes Status: Acute - Initial Treatment Plan Initial Treatment Plan: Seroquel 25mg po qhs. Ambien 10mg po qhs. Remeron 15mg po qhs
[2017-01-16] MEDS: CHOLECALCIFEROL (VITAMIN D3) 400 UNIT TABLET (FP) PO SCH (14:53)
[2017-01-16] MEDS: TRIAMCINOLONE ACET 0.5% OINT 15 GM TUBE TP SCH ×3 (14:53→22:40)
[2017-01-16] MEDS: AMMONIUM LACTATE 12% LOTION 225 GM BOTTLE TP SCH ×2 (14:53→22:40)
[2017-01-16 15:59] LABS: URINE APPEARANCE CLEAR; URINE BILIRUBIN NEGATIVE (NEGATIVE); URINE BLOOD NEGATIVE (NEGATIVE); URINE COLOR YELLOW; URINE GLUCOSE (UA) NEGATIVE (NEGATIVE); URINE KETONE NEGATIVE (NEGATIVE); URINE NITRITE NEGATIVE (NEGATIVE); URINE PROTEIN NEGATIVE (NEGATIVE); URINE UROBILINOGEN NEGATIVE E.U./dl (0.2-1.0)
[2017-01-16 16:11] LABS: URINE LEUK ESTERASE 1+ (NEGATIVE)
[2017-01-16 16:15] LABS: URINE RBC 1 /hpf (0-3); URINE WBC 7 /hpf (3-5)
[2017-01-16] MEDS: THIAMINE HCL 100 MG TABLET (FP) PO SCH (22:40)
[2017-01-16] MEDS: ZOLPIDEM TARTRATE 10 MG TABLET (PARK CARE ONLY) PO PRN (22:40)
[2017-01-16] MEDS: QUEtiapine FUMARATE 25 MG TABLET (FP) PO SCH (22:41)
[2017-01-16] MEDS: MIRTAZAPINE 15 MG TABLET (FP) PO SCH (22:42)
[2017-01-17] MEDS: diazePAM 5 MG TABLET PO PRN ×3 (05:43→17:12)
[2017-01-17 10:00] LABS: MCH 31.8 pg (25.7-33.7); MCHC 33.1 g/dl (32.0-35.9); MEAN CELL VOLUME 95.9 fl (80-96); MEAN PLT VOLUME 11.1 fl (7.5-11.1); PLATELET COUNT 107 K/MM3 (134-434); RDW 13.9 % (11.9-15.9); WHITE BLOOD COUNT 5.7 K/mm3 (4.0-10.0)
[2017-01-17] MEDS ORDERED: METHADONE HCL 10 MG TABLET (FOR DETOX USE ONLY) PO ONE (10:00)
[2017-01-17] MEDS: amLODIPine BESYLATE 5 MG TABLET (FP) PO SCH (10:35)
[2017-01-17] MEDS: CHOLECALCIFEROL (VITAMIN D3) 400 UNIT TABLET (FP) PO SCH (10:35)
[2017-01-17] MEDS: TRIAMCINOLONE ACET 0.5% OINT 15 GM TUBE TP SCH ×4 (10:35→22:27)
[2017-01-17] MEDS: PRENATAL VITAMINS W/ FOLIC ACID TABLET (FP) PO SCH (10:35)
[2017-01-17] MEDS: ABACAVIR SULFATE 300 MG TABLET PO SCH ×2 (10:35→22:29)
[2017-01-17] MEDS: RALTEGRAVIR POTASSIUM 400 MG TAB PO SCH ×2 (10:35→22:29)
[2017-01-17] MEDS: AMMONIUM LACTATE 12% LOTION 225 GM BOTTLE TP SCH ×2 (10:36→22:28)
[2017-01-17] MEDS: NICOTINE 14 MG/24 HOURS TOPICAL PATCH TD SCH (10:36)
[2017-01-17 10:37] LABS: ALBUMIN 3.4 g/dl (3.4-5.0); ANION GAP 4 (8-16); CALCIUM 8.9 mg/dL (8.5-10.1); CO2 32 mmol/L (21-32); GLUCOSE,RANDOM 113 mg/dL (74-106); SGOT/AST 21 U/L (15-37)
[2017-01-17 10:40] LABS: ALK PHOS 60 U/L (45-117); BILIRUBIN,TOTAL 0.3 mg/dL (0.2-1.0); COCKROFT - GAULT 89.22; CREATININE 1.1 mg/dL (0.7-1.3); SGPT/ALT 20 U/L (12-78)
--- NOTE | 2017-01-17 10:51 | PN ---
BHS COWS - Scale Resting Pulse: 0= [place] 80 or Below Sweatin=Flushed/Facial Moisture Restless Observation: 1= Difficult to Sit Still Pupil Size: 0= Normal to Room Light Bone or Joint Aches: 1= Mild Discomfort Runny Nose/ Eye Tearin= Runny Nose/Eyes GI Upset > 30mins: 2= Nausea/Diarrhea Tremor Observation of Outstretched Hands: 2= Slight Tremor Visible Yawning Observation: 1= 1-2x During Session Anxiety or Irritability: 2=Irritable/Anxious Goose Flesh Skin: 0=Smooth Skin COWS Score: 13 BHS Progress Note (SOAP) Subjective: Anxiety,tremors,sweating,interrupted sleep,restless. Objective: 01/17/17 10:50 Vital Signs - 8 hr 01/17/17 01/17/17 01/17/17 03:44 06:41 10:43 Temperature 98 F 97.0 F L Pulse Rate 65 72 Respiratory 18 18 18 Rate Blood Pressure 136/81 139/85 Laboratory Tests 01/16/17 01/17/17 01/17/17 13:30 07:00 07:00 WBC 5.7 RBC 4.37 Hgb 13.9 Hct 41.9 MCV 95.9 MCHC 33.1 RDW 13.9 Plt Count 107 L MPV 11.1 Sodium 142 Potassium 4.4 Chloride 106 Carbon Dioxide 32 Anion Gap 4 L BUN 17 Creatinine 1.1 Creat Clearance w eGFR > 60 Random Glucose 113 H Calcium 8.9 Total Bilirubin 0.3 AST 21 D ALT 20 D Alkaline Phosphatase 60 Total Protein 7.0 Albumin 3.4 Urine Color Yellow Urine Appearance Clear Urine pH 5.0 Urine Protein Negative Urine Glucose (UA) Negative Urine Ketones Negative Urine Blood Negative Urine Nitrite Negative Urine Bilirubin Negative Urine Urobilinogen Negative Ur Leukocyte Esterase 1+ H Urine RBC 1 Urine WBC 7 labs noted Assessment: 01/17/17 10:50 Withdrawal sx. Plan: Continue detox
--- NOTE | 2017-01-17 11:46 | EKG ---
Test Reason : Blood Pressure : / mmHG Vent. Rate : 059 BPM Atrial Rate : 059 BPM P-R Int : 156 ms QRS Dur : 084 ms QT Int : 448 ms P-R-T Axes : 069 061 067 degrees QTc Int : 443 ms SINUS BRADYCARDIA WHEN COMPARED WITH ECG OF 04-NOV-2016 15:51, NO SIGNIFICANT CHANGE WAS FOUND Confirmed by ALEJANDRA GLOVER MD ([id number]) on 01/17/2017 11:46:00 AM Referred By: Dread Arguelles Confirmed By:ALEJANDRA GLOVER MD
[2017-01-17] MEDS: THIAMINE HCL 100 MG TABLET (FP) PO SCH (22:27)
[2017-01-17] MEDS: ZOLPIDEM TARTRATE 10 MG TABLET (PARK CARE ONLY) PO PRN (22:28)
[2017-01-17] MEDS: MIRTAZAPINE 15 MG TABLET (FP) PO SCH (22:29)
[2017-01-17] MEDS: QUEtiapine FUMARATE 25 MG TABLET (FP) PO SCH (22:29)
[2017-01-18] MEDS: diazePAM 5 MG TABLET PO PRN ×4 (05:35→19:45)
[2017-01-18] MEDS ORDERED: METHADONE HCL 5 MG TABLET (FOR DETOX USE ONLY) PO ONE (10:00)
[2017-01-18] MEDS: TRIAMCINOLONE ACET 0.5% OINT 15 GM TUBE TP SCH ×4 (10:20→22:26)
[2017-01-18] MEDS: CHOLECALCIFEROL (VITAMIN D3) 400 UNIT TABLET (FP) PO SCH (10:24)
[2017-01-18] MEDS: PRENATAL VITAMINS W/ FOLIC ACID TABLET (FP) PO SCH (10:24)
[2017-01-18] MEDS: RALTEGRAVIR POTASSIUM 400 MG TAB PO SCH ×2 (10:24→22:27)
[2017-01-18] MEDS: AMMONIUM LACTATE 12% LOTION 225 GM BOTTLE TP SCH ×2 (10:24→22:27)
[2017-01-18] MEDS: amLODIPine BESYLATE 5 MG TABLET (FP) PO SCH (10:24)
[2017-01-18] MEDS: ABACAVIR SULFATE 300 MG TABLET PO SCH ×2 (10:24→22:29)
[2017-01-18] MEDS: NICOTINE 14 MG/24 HOURS TOPICAL PATCH TD SCH (10:25)
--- NOTE | 2017-01-18 17:45 | PN ---
S COWS - Scale Resting Pulse: 0= [place] 80 or Below Sweatin= Chills/Flushing Restless Observation: 1= Difficult to Sit Still Pupil Size: 0= Normal to Room Light Bone or Joint Aches: 2= Severe Diffuse Aches Runny Nose/ Eye Tearin= Runny Nose/Eyes GI Upset > 30mins: 1= Stomach Cramp Tremor Observation of Outstretched Hands: 2= Slight Tremor Visible Yawning Observation: 2= >3x During Session Anxiety or Irritability: 0= None Goose Flesh Skin: 3=Piloerection COWS Score: 14 BHS Progress Note (SOAP) Subjective: Interrupted sleep, Tremors. Objective: PT. A & O X 3, OBSERVED AMBULATING ON UNIT. 01/18/17 17:43 Vital Signs Temperature 96.7 F L 01/18/17 15:35 Pulse Rate 73 01/18/17 15:35 Respiratory Rate 20 01/18/17 15:35 Blood Pressure 131/85 01/18/17 15:35 O2 Sat by Pulse Oximetry (%) Laboratory Last Values WBC 5.7 K/mm3 (4.0-10.0) 01/17/17 07:00 RBC 4.37 M/mm3 (4.00-5.60) 01/17/17 07:00 Hgb 13.9 GM/dL (11.7-16.9) 01/17/17 07:00 Hct 41.9 % (35.4-49) 01/17/17 07:00 MCV 95.9 fl (80-96) 01/17/17 07:00 MCHC 33.1 g/dl (32.0-35.9) 01/17/17 07:00 RDW 13.9 % (11.9-15.9) 01/17/17 07:00 Plt Count 107 K/MM3 (134-434) L 01/17/17 07:00 MPV 11.1 fl (7.5-11.1) 01/17/17 07:00 Sodium 142 mmol/L (136-145) 01/17/17 07:00 Potassium 4.4 mmol/L (3.5-5.1) 01/17/17 07:00 Chloride 106 mmol/L (98-107) 01/17/17 07:00 Carbon Dioxide 32 mmol/L (21-32) 01/17/17 07:00 Anion Gap 4 (8-16) L 01/17/17 07:00 BUN 17 mg/dL (7-18) 01/17/17 07:00 Creatinine 1.1 mg/dL (0.7-1.3) 01/17/17 07:00 Creat Clearance w eGFR > 60 (>60) 01/17/17 07:00 Random Glucose 113 mg/dL (74-106) H 01/17/17 07:00 Calcium 8.9 mg/dL (8.5-10.1) 01/17/17 07:00 Total Bilirubin 0.3 mg/dL (0.2-1.0) 01/17/17 07:00 AST 21 U/L (15-37) D 01/17/17 07:00 ALT 20 U/L (12-78) D 01/17/17 07:00 Alkaline Phosphatase 60 U/L (45-117) 01/17/17 07:00 Total Protein 7.0 g/dl (6.4-8.2) 01/17/17 07:00 Albumin 3.4 g/dl (3.4-5.0) 01/17/17 07:00 Urine Color Yellow 01/16/17 13:30 Urine Appearance Clear 01/16/17 13:30 Urine pH 5.0 (5.0-8.0) 01/16/17 13:30 Ur Specific [place] 1.025 (1.005-1.025) 01/16/17 13:30 Urine Protein Negative (NEGATIVE) 01/16/17 13:30 Urine Glucose (UA) Negative (NEGATIVE) 01/16/17 13:30 Urine Ketones Negative (NEGATIVE) 01/16/17 13:30 Urine Blood Negative (NEGATIVE) 01/16/17 13:30 Urine Nitrite Negative (NEGATIVE) 01/16/17 13:30 Urine Bilirubin Negative (NEGATIVE) 01/16/17 13:30 Urine Urobilinogen Negative E.U./dl (0.2-1.0) 01/16/17 13:30 Ur Leukocyte Esterase 1+ (NEGATIVE) H 01/16/17 13:30 Urine RBC 1 /hpf (0-3) 01/16/17 13:30 Urine WBC 7 /hpf (3-5) 01/16/17 13:30 RPR Titer Nonreactive (NONREACTIVE) 01/17/17 07:00 LABS NOTED. Assessment: 01/18/17 17:44 WITHDRAWAL SYMPTOMS. Plan: CONTINUE DETOX. ADVISED PATIENT TO FOLLOW-UP WITH [facility] / REHAB MEDICAL PROVIDER AFTER DISCHARGE FROM DETOX FOR GENERAL MEDICAL ASSESSMENT AND FOR ABNORMAL ADMISSION LAB VALUES.
[2017-01-18] MEDS: THIAMINE HCL 100 MG TABLET (FP) PO SCH (22:27)
[2017-01-18] MEDS: MIRTAZAPINE 15 MG TABLET (FP) PO SCH (22:27)
[2017-01-18] MEDS: QUEtiapine FUMARATE 25 MG TABLET (FP) PO SCH (22:29)
[2017-01-19] MEDS: diazePAM 5 MG TABLET PO PRN ×2 (05:31→10:14)
[2017-01-19] MEDS ORDERED: METHADONE HCL 5 MG TABLET (FOR DETOX USE ONLY) PO ONE (10:00)
[2017-01-19] MEDS: RALTEGRAVIR POTASSIUM 400 MG TAB PO SCH ×2 (10:15→22:27)
[2017-01-19] MEDS: ABACAVIR SULFATE 300 MG TABLET PO SCH ×2 (10:15→22:27)
[2017-01-19] MEDS: PRENATAL VITAMINS W/ FOLIC ACID TABLET (FP) PO SCH (10:15)
[2017-01-19] MEDS: amLODIPine BESYLATE 5 MG TABLET (FP) PO SCH (10:15)
[2017-01-19] MEDS: CHOLECALCIFEROL (VITAMIN D3) 400 UNIT TABLET (FP) PO SCH (10:15)
[2017-01-19] MEDS: AMMONIUM LACTATE 12% LOTION 225 GM BOTTLE TP SCH ×2 (10:16→22:26)
[2017-01-19] MEDS: NICOTINE 14 MG/24 HOURS TOPICAL PATCH TD SCH (10:16)
[2017-01-19] MEDS: TRIAMCINOLONE ACET 0.5% OINT 15 GM TUBE TP SCH ×4 (10:16→22:26)
--- NOTE | 2017-01-19 15:30 | PN ---
BHS Progress Note (SOAP) Subjective: Sweating, anxious, interrupted sleep Objective: 01/19/17 15:28 Last Vital Signs Temp Pulse Resp BP Pulse Ox 97.8 F 67 18 127/79 01/19/17 13:53 01/19/17 13:53 01/19/17 13:53 01/19/17 13:53 Laboratory Tests 01/16/17 01/17/17 01/17/17 13:30 07:00 07:00 WBC RBC Hgb Hct MCV MCHC RDW Plt Count MPV Sodium 142 Potassium 4.4 Chloride 106 Carbon Dioxide 32 Anion Gap 4 L BUN 17 Creatinine 1.1 Creat Clearance w eGFR > 60 Random Glucose 113 H Calcium 8.9 Total Bilirubin 0.3 AST 21 D ALT 20 D Alkaline Phosphatase 60 Total Protein 7.0 Albumin 3.4 Urine Color Yellow Urine Appearance Clear Urine pH 5.0 Ur Specific [place] 1.025 Urine Protein Negative Urine Glucose (UA) Negative Urine Ketones Negative Urine Blood Negative Urine Nitrite Negative Urine Bilirubin Negative Urine Urobilinogen Negative Ur Leukocyte Esterase 1+ H Urine RBC 1 Urine WBC 7 RPR Titer Nonreactive 01/17/17 07:00 WBC 5.7 RBC 4.37 Hgb 13.9 Hct 41.9 MCV 95.9 MCHC 33.1 RDW 13.9 Plt Count 107 L MPV 11.1 Sodium Potassium Chloride Carbon Dioxide Anion Gap BUN Creatinine Creat Clearance w eGFR Random Glucose Calcium Total Bilirubin AST ALT Alkaline Phosphatase Total Protein Albumin Urine Color Urine Appearance Urine pH Ur Specific [place] Urine Protein Urine Glucose (UA) Urine Ketones Urine Blood Urine Nitrite Urine Bilirubin Urine Urobilinogen Ur Leukocyte Esterase Urine RBC Urine WBC RPR Titer Labs noted Assessment: 01/19/17 15:29 Withdrawal symptoms Plan: Continue detox
[2017-01-19] MEDS: QUEtiapine FUMARATE 25 MG TABLET (FP) PO SCH (22:27)
[2017-01-19] MEDS: THIAMINE HCL 100 MG TABLET (FP) PO SCH (22:27)
[2017-01-19] MEDS: MIRTAZAPINE 15 MG TABLET (FP) PO SCH (22:27)
[2017-01-20] MEDS ORDERED: METHADONE HCL 10 MG TABLET (FOR DETOX USE ONLY) PO ONE (10:00)
[2017-01-20] MEDS: CHOLECALCIFEROL (VITAMIN D3) 400 UNIT TABLET (FP) PO SCH (10:22)
[2017-01-20] MEDS: ABACAVIR SULFATE 300 MG TABLET PO SCH ×2 (10:22→22:12)
[2017-01-20] MEDS: PRENATAL VITAMINS W/ FOLIC ACID TABLET (FP) PO SCH (10:22)
[2017-01-20] MEDS: amLODIPine BESYLATE 5 MG TABLET (FP) PO SCH (10:22)
[2017-01-20] MEDS: RALTEGRAVIR POTASSIUM 400 MG TAB PO SCH ×2 (10:23→22:12)
[2017-01-20] MEDS: NICOTINE 14 MG/24 HOURS TOPICAL PATCH TD SCH (10:23)
[2017-01-20] MEDS: TRIAMCINOLONE ACET 0.5% OINT 15 GM TUBE TP SCH ×4 (10:23→22:11)
[2017-01-20] MEDS: AMMONIUM LACTATE 12% LOTION 225 GM BOTTLE TP SCH ×2 (10:23→22:11)
--- NOTE | 2017-01-20 15:14 | PN ---
BHS Progress Note (SOAP) Subjective: Sweating,interrupted sleep,restless Objective: 01/20/17 15:13 Vital Signs - 8 hr 01/20/17 01/20/17 09:35 13:32 Temperature 96.8 F L 987.4 F H Pulse Rate 86 82 Respiratory 18 18 Rate Blood Pressure 132/80 141/92 Laboratory Last Values WBC 5.7 K/mm3 (4.0-10.0) 01/17/17 07:00 RBC 4.37 M/mm3 (4.00-5.60) 01/17/17 07:00 Hgb 13.9 GM/dL (11.7-16.9) 01/17/17 07:00 Hct 41.9 % (35.4-49) 01/17/17 07:00 MCV 95.9 fl (80-96) 01/17/17 07:00 MCHC 33.1 g/dl (32.0-35.9) 01/17/17 07:00 RDW 13.9 % (11.9-15.9) 01/17/17 07:00 Plt Count 107 K/MM3 (134-434) L 01/17/17 07:00 MPV 11.1 fl (7.5-11.1) 01/17/17 07:00 Sodium 142 mmol/L (136-145) 01/17/17 07:00 Potassium 4.4 mmol/L (3.5-5.1) 01/17/17 07:00 Chloride 106 mmol/L (98-107) 01/17/17 07:00 Carbon Dioxide 32 mmol/L (21-32) 01/17/17 07:00 Anion Gap 4 (8-16) L 01/17/17 07:00 BUN 17 mg/dL (7-18) 01/17/17 07:00 Creatinine 1.1 mg/dL (0.7-1.3) 01/17/17 07:00 Creat Clearance w eGFR > 60 (>60) 01/17/17 07:00 Random Glucose 113 mg/dL (74-106) H 01/17/17 07:00 Calcium 8.9 mg/dL (8.5-10.1) 01/17/17 07:00 Total Bilirubin 0.3 mg/dL (0.2-1.0) 01/17/17 07:00 AST 21 U/L (15-37) D 01/17/17 07:00 ALT 20 U/L (12-78) D 01/17/17 07:00 Alkaline Phosphatase 60 U/L (45-117) 01/17/17 07:00 Total Protein 7.0 g/dl (6.4-8.2) 01/17/17 07:00 Albumin 3.4 g/dl (3.4-5.0) 01/17/17 07:00 Urine Color Yellow 01/16/17 13:30 Urine Appearance Clear 01/16/17 13:30 Urine pH 5.0 (5.0-8.0) 01/16/17 13:30 Ur Specific [place] 1.025 (1.005-1.025) 01/16/17 13:30 Urine Protein Negative (NEGATIVE) 01/16/17 13:30 Urine Glucose (UA) Negative (NEGATIVE) 01/16/17 13:30 Urine Ketones Negative (NEGATIVE) 01/16/17 13:30 Urine Blood Negative (NEGATIVE) 01/16/17 13:30 Urine Nitrite Negative (NEGATIVE) 01/16/17 13:30 Urine Bilirubin Negative (NEGATIVE) 01/16/17 13:30 Urine Urobilinogen Negative E.U./dl (0.2-1.0) 01/16/17 13:30 Ur Leukocyte Esterase 1+ (NEGATIVE) H 01/16/17 13:30 Urine RBC 1 /hpf (0-3) 01/16/17 13:30 Urine WBC 7 /hpf (3-5) 01/16/17 13:30 RPR Titer Nonreactive (NONREACTIVE) 01/17/17 07:00 labs noted Assessment: 01/20/17 15:13 Withdrawal sx. Plan: Continue detox
[2017-01-20] MEDS: THIAMINE HCL 100 MG TABLET (FP) PO SCH (22:11)
[2017-01-20] MEDS: QUEtiapine FUMARATE 25 MG TABLET (FP) PO SCH (22:12)
[2017-01-20] MEDS: MIRTAZAPINE 15 MG TABLET (FP) PO SCH (22:12)
[2017-01-21] MEDS ORDERED: METHADONE HCL 5 MG TABLET (FOR DETOX USE ONLY) PO ONE (06:00)
[2017-01-21 06:48] VITALS: BP 132/83; PULSE 84; TEMP 96.4
--- NOTE | 2017-01-21 09:46 | DS ---
[facility] Detox Discharge Summary Admission Date: 01/16/17 Discharge Date: 01/21/17 - History Present History: Opioid Dependence Additional Comments: DETOX COMPLETED.ALERT O X 3.NAD. Pertinent Past History: HIV+ HEP C CKD HTN BLINDNESS, LEGAL DERMATITIS BACK PAIN USE OF GUIDE STICK - Physical Exam Results Vital Signs: Vital Signs Temperature 96.4 F L 01/21/17 06:47 Pulse Rate 84 01/21/17 06:47 Respiratory Rate 18 01/21/17 06:47 Blood Pressure 132/83 01/21/17 06:47 O2 Sat by Pulse Oximetry (%) Pertinent Admission Physical Exam Findings: WITHDRAWAL SX - Treatment Hospital Course: Detox Protocol Followed, Detoxed Safely, Responded well, Discharged Condition Good - Medication Discharge Medications: Ambulatory Orders Ammonium Lactate Lotion [Lac-Hydrin 12% Lotion -] 1 applic TP ASDIR #1 bottle Amlodipine Besylate [Norvasc -] 5 mg PO DAILY #30 tablet 10/04/16 Cholecalciferol (Vitamin D3) [Vitamin D3 -] 800 unit PO DAILY #30 tablet Zolpidem Tartrate [Ambien] 10 mg PO HS #30 tablet MDD 1 12/18/16 Abacavir/Dolutegravir/Lamivudi [Triumeq Tablet] 1 each PO DAILY #30 tablet 01/09 Gabapentin [Neurontin] 300 mg PO BID #60 capsule 01/14/17 Hydrocortisone [Cortisone] 56 gm TP BID #30 cream..g. 01/14/17 Quetiapine Fumarate [Seroquel -] 25 mg PO HS #30 tablet MDD 25 01/14/17 Mirtazapine [Remeron -] 15 mg PO HS 01/16/17 Mirtazapine [Remeron -] 15 mg PO HS #30 tablet 01/16/17 Quetiapine Fumarate [Seroquel -] 25 mg PO HS #30 tab 01/16/17 Zolpidem Tartrate [Ambien] 10 mg PO HS PRN #14 tablet MDD 140 01/16/17 - Diagnosis (1) Nicotine dependence Status: Acute Qualifiers: Nicotine product type: cigarettes Substance use status: uncomplicated Qualified Code(s): F17.210 - Nicotine dependence, cigarettes, uncomplicated (2) Blindness, legal Status: Chronic (3) Hepatitis C infection Status: Chronic Qualifiers: Viral hepatitis chronicity: chronic Hepatic coma status: without hepatic coma Qualified Code(s): B18.2 - Chronic viral hepatitis C (4) Hypertension Status: Chronic Qualifiers: Hypertension type: essential hypertension Qualified Code(s): I10 - Essential (primary) hypertension (5) HIV (human immunodeficiency virus infection) Status: Chronic (6) Requires sighted guide Status: Chronic - AMA Did Patient Leave Against Medical Advice: No
[2017-01-21] MEDS: AMMONIUM LACTATE 12% LOTION 225 GM BOTTLE TP SCH (09:54)
[2017-01-21] MEDS: TRIAMCINOLONE ACET 0.5% OINT 15 GM TUBE TP SCH (09:54)
== END 2017-01-21 09:54 | disposition home or self-care (01) | DRG 897 ==
LOC: YASAS 09:21 → Y3N 11:58
PROVIDERS: ADMIT Internal Medicine; ATTEND Internal Medicine
PROC: HZ2ZZZZ Detoxification Services for Substance Abuse Treatment (ICD-10-PCS; principal; 2017-01-21)
DX: F11.23 Opioid dependence with withdrawal (principal); F14.20 Cocaine dependence, uncomplicated; F12.20 Cannabis dependence, uncomplicated; F19.24 Other psychoactive substance dependence with psychoactive substance-induced mood disorder; F32.9 Major depressive disorder, single episode, unspecified; B18.2 Chronic viral hepatitis C; H54.8 Legal blindness, as defined in USA; L40.50 Arthropathic psoriasis, unspecified
CPT/HCPCS: 36415; 80053; 81003; 81015; 85027; 86593; 93005; 93010; 99406; G0397; G0463-25

== ENCOUNTER 2017-03-22 10:12 | Emergency (ER) | payer OTHER ==
[2017-03-22 10:22] VITALS: BP 145/71; PULSE 78; TEMP 98; BMI 25.7
--- NOTE | 2017-03-22 11:14 | PDOC ---
History of Present Illness - General Chief Complaint: Laceration Stated Complaint: LACERATION Time Seen by Provider: 03/22/17 10:43 History Source: Patient Exam Limitations: Physical Impairment (legally blind ) - History of Present Illness Initial Comments: 03/22/17 11:15 66 yr male with c/o laceration to left eyebrow after trip and fall last night 7pm. Pt denies LOC. Pt has historyof IVDA, Hiv, legally blind. Pt also states he has abscess to right forearm from IVD use, he was an inpatient at [facility] and [facility] yesterday. Pt needs antibiotics. 03/22/17 11:20 03/22/17 11:34 Timing/Duration: reports: yesterday (7pm ) Severity: Yes: mild Location: reports: face Past History - Past Medical History Allergies/Adverse Reactions: Allergies Allergy/AdvReac Type Severity Reaction Status Date / Time Penicillins Allergy Hives Verified 03/22/17 10:19 Home Medications: Ambulatory Orders Amlodipine Besylate [Norvasc -] 5 mg PO DAILY #30 tablet 02/14/17 Sulfamethoxazole/Trimethoprim [Bactrim Ds Tablet] 1 each PO BID #14 tablet 03/22 Anemia: No Asthma: No Cancer: No Cardiac Disorders: No CVA: No COPD: No CHF: No Dementia: No Diabetes: No GI Disorders: No Disorders: No HTN: Yes Hypercholesterolemia: No HIV: Yes Kidney Stones: No Liver Disease: Yes Psychiatric Problems: No Suicide Attempt (Hx): No Seizures: No Thyroid Disease: No Other medical history: heroin abuse, legaly blind, - Surgical History Abdominal Surgery: No Appendectomy: No Cardiac Surgery: No Cholecystectomy: No Lung Surgery: No Neurologic Surgery: No Orthopedic Surgery: Yes (right ankle broken 90's has screws placed) - Reproductive History Testicular Surgery: No - Psycho/Social/Smoking Cessation Hx Anxiety: No Suicidal Ideation: No Smoking Status: Yes Smoking History: Current every day smoker Have you smoked in the past 12 months: Yes Number of Cigarettes Smoked Daily: 4 Cigars Per Day: 0 Information on smoking cessation initiated: Yes 'Breaking Loose' booklet given: 03/22/17 Hx Alcohol Use: No Drug/Substance Use Hx: Yes (heroin) Substance Use Type: Heroin Hx Substance Use Treatment: Yes (Detox,OTP) Review of Systems - Review of Systems Able to Perform ROS?: Yes Is the patient limited [place]ese proficient: No Constitutional: No: Symptoms Reported HEENTM: No: Symptoms Reported Respiratory: No: Symptoms reported Cardiac (ROS): No: Symptoms Reported ABD/GI: No: Symptoms Reported : No: Symptoms Reported Musculoskeletal: No: Symptoms Reported Integumentary: Yes: Symptoms Reported *Physical Exam - Vital Signs Last Vital Signs Temp Pulse Resp BP Pulse Ox 98.0 F 78 18 145/71 100 03/22/17 10:19 03/22/17 10:19 03/22/17 10:19 03/22/17 10:19 03/22/17 10:19 - Physical Exam General Appearance: Yes: Nourished, Appropriately Dressed HEENT: positive: EOMI, VANESSA Neck: positive: Supple Respiratory/Chest: positive: Lungs Clear, Normal Breath Sounds Cardiovascular: positive: Regular Rhythm, Regular Rate Gastrointestinal/Abdominal: positive: Soft Musculoskeletal: positive: Normal Inspection Extremity: positive: Normal Capillary Refill, Normal Range of Motion, Other ( right forearm with tender indurated area, swelling no streaking ) Integumentary: positive: Normal Color, Dry, Warm, Other (laceration to left eyebrow 2 inch, partial thickness ) Neurologic: positive: Fully Oriented, Alert, Normal Mood/Affect, Normal Response , Motor Strength 5/5 Procedures - Laceration/Wound Repair Left Face Wound Explored: clean Wound's Depth, Shape: linear Irrigated w/ Saline: Yes Betadine Prep: Yes Anesthesia: 1% Lidocaine w/ Epi Amount of Anesthetic (ccs): 4 Wound Repaired With: Sutures Suture Size/Type: 5:0, nylon Number of Sutures: 8 Layer Closure: No Sterile Dressing Applied: No Progress: 03/22/17 11:26 bacitracin placed Medical Decision Making - Medical Decision Making 03/22/17 11:27 cc: eyeborw laceration yesterday abscess to right forearm no fluctuance, erythema and pain will suture close after strict irrigation will give bactrim for abscess on the right forearm pt understands to follow up with his PMD on Friday for strict follow up 03/22/17 11:35 *DC/Admit/Observation/Transfer Diagnosis at time of Disposition: Laceration - Discharge Dispostion Disposition: HOME Condition at time of disposition: Improved - Prescriptions Prescriptions: Sulfamethoxazole/Trimethoprim [Bactrim Ds Tablet] 1 each PO BID #14 tablet - Referrals Referrals: Pb Jones MD [Primary Care Provider] - - Patient Instructions Printed Discharge Instructions: DI for Laceration Repair Additional Instructions: return in 7-10 days for suture removal keep dry apply bacitracin once a day take the antibiotics as directed follow with your doctor next week to have the abscess on your arm re-checked
== END 2017-03-22 11:25 | disposition home or self-care (01) ==
LOC: JERFT 10:12
PROC: 0HQ1XZZ Repair Face Skin, External Approach (ICD-10-PCS; principal; 2017-03-22)
DX: S01.112A Laceration without foreign body of left eyelid and periocular area, initial encounter (principal); W19.XXXA Unspecified fall, initial encounter; Y93.89 Activity, other specified; Y92.89 Other specified places as the place of occurrence of the external cause; F11.288 Opioid dependence with other opioid-induced disorder; Z21 Asymptomatic human immunodeficiency virus [HIV] infection status; H54.8 Legal blindness, as defined in USA; F17.210 Nicotine dependence, cigarettes, uncomplicated
CPT/HCPCS: 12011-25; 99282-25

== ENCOUNTER 2017-05-17 09:27 | Inpatient (IN) | payer OTHER ==
[2017-05-17 10:22] VITALS: BMI 25.0
--- NOTE | 2017-05-17 10:29 | HP ---
COWS - Scale Resting Pulse: 1= [place] 81-100 Sweatin= Chills/Flushing Restless Observation: 1= Difficult to Sit Still Pupil Size: 0= Normal to Room Light Bone or Joint Aches: 1= Mild Discomfort Runny Nose/ Eye Tearin= Nasal Congestion GI Upset > 30mins: 1= Stomach Cramp Tremor Observation: 1= Tremor [place], Not Seen Yawning Observation: 1= 1-2x During Session Anxiety or Irritability: 1=Feels Anxious/Irritable Goose Flesh Skin: 0=Smooth Skin COWS Score: 9 Admission ROS BHS - HPI Chief Complaint: I want to stop, I'm tired Allergies/Adverse Reactions: Allergies Allergy/AdvReac Type Severity Reaction Status Date / Time Penicillins Allergy Hives Verified 05/17/17 10:42 History of Present Illness: 66 yo gentleman here for detox from heroin - one of multiple admissions for opiate detox. Noted methadone in urine - states he took it once a few days ago to help with withdrawal symptoms. Patient also HIV+ , blind. No seizures. Exam Limitations: Clinical Condition - Ebola screening Have you traveled outside of the country in the last 21 days: No Have you had contact with anyone from an Ebola affected area: No Have you been sick,other than usual withdrawal symptoms: No Do you have a fever: No - Review of Systems Constitutional: Loss of Appetite, Night Sweats, Changes in sleep, Weakness EENT: reports: Nose Congestion, Other (blind) Respiratory: reports: No Symptoms reported Cardiac: reports: No Symptoms Reported GI: reports: Diarrhea, Nausea : reports: Dysuria Musculoskeletal: reports: Joint Pain Integumentary: reports: No Symptoms Reported Neuro: reports: Headache Endocrine: reports: No Symptoms Reported Hematology: reports: No Symptoms Reported Psychiatric: reports: Judgement Intact, Mood/Affect Appropiate, Orientated x3 Other Systems: Reviewed and Negative Patient History - Patient Medical History Hx Anemia: No Hx Asthma: No Hx Chronic Obstructive Pulmonary Disease (COPD): No Hx Cancer: No Hx Cardiac Disorders: No Hx Congestive Heart Failure: No Hx Hypertension: Yes (on meds) Hx Hypercholesterolemia: No Hx Pacemaker: No HX Cerebrovascular Accident: No Hx Seizures: No Hx Dementia: No Hx Diabetes: No Hx Gastrointestinal Disorders: No Hx Liver Disease: Yes (fatty liver) Hx Genitourinary Disorders: No Hx Sexually Transmitted Disorders: No Hx Renal Disease (ESRD): No Hx Thyroid Disease: No Hx Human Immunodeficiency Virus (HIV): Yes (SINCE 1989, Tcells 682, vl <20) Hx Hepatitis C: Yes (treated) Hx Depression: Yes (seroquel & ambien) Hx Suicide Attempt: No Hx Bipolar Disorder: No Hx Schizophrenia: No Other Medical History: blind, thrombocytopenia - Patient Surgical History Past Surgical History: Yes Hx Neurologic Surgery: No Hx Cataract Extraction: Yes ([facility],corneal transplants) Hx Cardiac Surgery: No Hx Lung Surgery: No Hx Breast Surgery: No Hx Breast Biopsy: No Hx Abdominal Surgery: No Hx Appendectomy: No Hx Cholecystectomy: No Hx Genitourinary Surgery: No Hx Section: No Hx Orthopedic Surgery: Yes (right ankle broken 90's has screws placed) Other Surgical History: detached retina/14 eye surgeries Anesthesia Reaction: No - PPD History Previous Implant?: Yes Documented Results: Negative w/proof Date: 11/06/16 Results: 0 mm PPD to be Administered?: No - Reproductive History Patient is a Female of Child Bearing Age (11 -55 yrs old): No (male) - Smoking Cessation Smoking history: Current every day smoker Have you smoked in the past 12 months: Yes Aproximately how many cigarettes per day: 4 Cigars Per Day: 0 Hx Chewing Tobacco Use: No Initiated information on smoking cessation: Yes 'Breaking Loose' booklet given: 05/17/17 (give on floor) - Substance & Tx. History Hx Alcohol Use: No Hx Substance Use: Yes Substance Use Type: Heroin Hx Substance Use Treatment: Yes (detox, hx methadone ) - Substances Abused Heroin Route: Inhalation Frequency: Daily Amount used: 4 bags Age of first use: 15 Date of Last Use: 05/16/17 Family Disease History - Family Disease History Family Disease History: Heart Disease: Mother (living, arthritis, HTN), Other: Grandparent (blindness), Father (, etoh, Liver disease?), Mother, Sister (2 bio sisters - healthy), Son (living, healthy), Daughter (living, healthy) Admission Physical Exam BHS - Vital Signs Vital Signs: Vital Signs - 24 hr 05/17/17 10:21 Temperature 97.1 F L Pulse Rate 89 Respiratory 18 Rate Blood Pressure 134/73 - Physical General Appearance: Yes: Nourished, Appropriately Dressed, Mild Distress HEENTM: Yes: Hearing grossly Normal, Normocephalic, Normal Voice, Pharynx Normal , Other (blind) Respiratory: Yes: Normal Breath Sounds, No Respiratory Distress Neck: Yes: No masses,lesions,Nodules, Supple Breast: Yes: Breast Exam Deferred Cardiology: Yes: Regular Rhythm, Regular Rate Abdominal: Yes: Flat, Soft Genitourinary: Yes: Within Normal Limits Back: Yes: Normal Inspection Musculoskeletal: Yes: full range of Motion, Gait Steady Extremities: Yes: Normal Capillary Refill, Normal Inspection, Normal Range of Motion Neurological: Yes: Fully Oriented, Alert, Normal Mood/Affect, Normal Response Integumentary: Yes: Normal Color, Dry, Warm Lymphatic: Yes: Within Normal Limits - Diagnostic (1) Opioid dependence with withdrawal Current Visit: Yes Status: Chronic (2) Hypertension goal BP (blood pressure) < 140/80 Current Visit: Yes Status: Chronic (3) Nicotine dependence Current Visit: Yes Status: Chronic Qualifiers: Nicotine product type: cigarettes Substance use status: uncomplicated Qualified Code(s): F17.210 - Nicotine dependence, cigarettes, uncomplicated Comment: counseled cessation - he is trying to cut down - plans to quit on his birthday (4) Blindness, legal Current Visit: Yes Status: Chronic Comment: no current treatment (5) HIV (human immunodeficiency virus infection) Current Visit: Yes Status: Chronic Comment: on meds (6) Hypertension Current Visit: Yes Status: Chronic Qualifiers: Hypertension type: essential hypertension Qualified Code(s): I10 - Essential (primary) hypertension Comment: on meds, stable (7) Requires sighted guide Current Visit: Yes Status: Chronic (8) Thrombocytopenia Current Visit: Yes Status: Chronic (9) Hepatitis C infection Current Visit: Yes Status: Chronic Qualifiers: Viral hepatitis chronicity: chronic Hepatic coma status: without hepatic coma Qualified Code(s): B18.2 - Chronic viral hepatitis C Comment: treated Cleared for Admission S - Detox or Rehab [facility] Level of Care: Medically Managed Detox Regimen/Protocol: Methadone [facility] Breath Alcohol Content Breath Alcohol Content: 0 Urine Drug Screen - Results Drug Screen Negative: No Urine Drug Screen Results: OPI-Opiates, MTD-Methadone
[2017-05-17] MEDS ORDERED: IBUPROFEN 400 MG TABLET (FP) PO PRN (10:42)
[2017-05-17] MEDS ORDERED: MAG HYDROX/AL HYDROX/SIMETH 30 ML UNIT-DOSE CUP PO PRN (10:42)
[2017-05-17] MEDS ORDERED: MAGNESIUM HYDROX 2400MG/30ML ORAL SUSPENSION 30 ML CUP PO PRN (10:42)
[2017-05-17] MEDS ORDERED: ACETAMINOPHEN 325 MG TABLET (FP) PO PRN (10:42)
[2017-05-17] MEDS ORDERED: MENTHOL/PHENOL 1 EACH UD MM PRN (10:42)
[2017-05-17] MEDS ORDERED: MAGNESIUM CITRATE 300 ML BOTTLE PO PRN (10:42)
[2017-05-17] MEDS ORDERED: P-EPHED 60MG/TRIPROLIDI 2.5MG TABLET PO PRN (10:42)
[2017-05-17] MEDS ORDERED: LOPERAMIDE HCL 2 MG CAPSULE PO PRN (10:42)
[2017-05-17] MEDS ORDERED: hydrOXYzine PAMOATE 50 MG CAPSULE (FP) PO PRN (10:42)
[2017-05-17] MEDS ORDERED: diphenhydrAMINE HCL 50 MG CAPSULE PO PRN (10:42)
[2017-05-17] MEDS: NICOTINE 14 MG/24 HOURS TOPICAL PATCH TD SCH (12:08)
[2017-05-17] MEDS: diazePAM 5 MG TABLET PO PRN ×2 (12:08→17:24)
[2017-05-17] MEDS ORDERED: METHADONE HCL 10 MG TABLET (FOR DETOX USE ONLY) PO ONE ×2 (12:15→23:00)
--- NOTE | 2017-05-17 12:56 | EKG ---
Test Reason : Blood Pressure : / mmHG Vent. Rate : 075 BPM Atrial Rate : 075 BPM P-R Int : 152 ms QRS Dur : 082 ms QT Int : 394 ms P-R-T Axes : 074 057 066 degrees QTc Int : 439 ms NORMAL SINUS RHYTHM POSSIBLE LEFT ATRIAL ENLARGEMENT BORDERLINE ECG WHEN COMPARED WITH ECG OF 16-JAN-2017 12:07, NO SIGNIFICANT CHANGE WAS FOUND Confirmed by YAAKOV MCDONOUGH MD ([id number]) on 05/17/2017 12:55:51 PM Referred By: Confirmed By:YAAKOV MCDONOUGH MD
[2017-05-17 15:42] LABS: URINE APPEARANCE CLEAR; URINE BILIRUBIN NEGATIVE (NEGATIVE); URINE BLOOD NEGATIVE (NEGATIVE); URINE COLOR YELLOW; URINE GLUCOSE (UA) NEGATIVE (NEGATIVE); URINE KETONE NEGATIVE (NEGATIVE); URINE NITRITE NEGATIVE (NEGATIVE); URINE PROTEIN NEGATIVE (NEGATIVE); URINE UROBILINOGEN NEGATIVE mg/dL (0.2-1.0)
[2017-05-17 15:44] LABS: URINE LEUK ESTERASE 1+ (NEGATIVE)
[2017-05-17 15:46] LABS: URINE RBC 1 /hpf (0-3); URINE WBC 18 /hpf (3-5)
--- NOTE | 2017-05-17 17:14 | CONSULT ---
[facility] Psychiatric Consult - Data Date of interview: 05/17/17 Admission source: [facility] Identifying data: This is one of multiple admissions to [facility] for this 66 y/ o AA male seeking detox treatment on for heroin dependence.Patient is a ,father of two,domiciled,disabled and supported on his SSI benefits. Substance Abuse History: Discussed in this session.Confirmed by patient. Smoking Cessation. Smoking history: Current every day smoker. Have you smoked in the past 12 months: Yes. Aproximately how many cigarettes per day: 4. Cigars Per Day: 0. Hx Chewing Tobacco Use: No. Initiated information on smoking cessation: Yes. 'Breaking Loose' booklet given: 05/17/17 (give on floor ). - Substance & Tx. History. Hx Alcohol Use: No. Hx Substance Use: Yes. Substance Use Type: Heroin. Hx Substance Use Treatment: Yes (detox, hx methadone ). - Substances Abused. Heroin. Route: Inhalation. Frequency: Daily. Amount used: 4 bags. Age of first use: 15. 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 Psychiatric History: No reported history of psychiatric hospitalizations.Mr Gamez is still followed at the [facility] in [place] (Dr Samra Conti) on a regimen of remeron 15 mg/hs + seroquel 25 mg/hs + zolpidem 10 mg/hs.No history of suicide attempts. Physical/Sexual Abuse/Trauma History: No history of abuse. Additional Comment: Urine Drug Screen Results: OPI-Opiates, MTD-Methadone.Noted. Mental Status Exam - Mental Status Exam Alert and Oriented to: Time, Place, Person Cognitive Function: Good Patient Appearance: Well Groomed (wearing dark eyeglasses and using a cane) Mood: Hopeful, Euthymic Affect: Appropriate, Normal Range Patient Behavior: Appropriate, Cooperative Speech Pattern: Clear, Appropriate Voice Loudness: Normal Thought Process: Goal Oriented Thought Disorder: Not Present Hallucinations: Denies Suicidal Ideation: Denies Homicidal Ideation: Denies Insight/Judgement: Poor Sleep: Poorly, Difficulty falling asleep Appetite: Good Muscle strength/Tone: Normal Gait/Station: Normal Psychiatric Findings - Problem List ([place] 1, 2,3) (1) Opioid dependence with withdrawal Current Visit: Yes Status: Acute (2) Nicotine dependence Current Visit: Yes Status: Acute Qualifiers: Nicotine product type: cigarettes Substance use status: uncomplicated Qualified Code(s): F17.210 - Nicotine dependence, cigarettes, uncomplicated Comment: counseled cessation - he is trying to cut down - plans to quit on his birthday (3) Depressive disorder Current Visit: Yes Status: Chronic (4) Blindness, legal Current Visit: Yes Status: Chronic Comment: no current treatment (5) HIV (human immunodeficiency virus infection) Current Visit: Yes Status: Chronic Comment: on meds (6) Hepatitis C infection Current Visit: Yes Status: Chronic Qualifiers: Viral hepatitis chronicity: chronic Hepatic coma status: without hepatic coma Qualified Code(s): B18.2 - Chronic viral hepatitis C Comment: treated (7) Hypertension Current Visit: Yes Status: Chronic Qualifiers: Hypertension type: essential hypertension Qualified Code(s): I10 - Essential (primary) hypertension Comment: on meds, stable (8) Psoriatic arthritis Current Visit: No Status: Acute (9) Insomnia Current Visit: Yes Status: Acute - Initial Treatment Plan Initial Treatment Plan: Psychoeducation.Detoxification is under way.Medications : seroquel 25 mg po hs + ambien 10 mg po hs.Side eeffects/benefits discussed with the patient.Mr gamez is in agreement with this careplan.Observation.Fals precautions.
[2017-05-17] MEDS: QUEtiapine FUMARATE 25 MG TABLET (FP) PO SCH (22:34)
[2017-05-17] MEDS: ZOLPIDEM TARTRATE 10 MG TABLET (PARK CARE ONLY) PO PRN (22:34)
[2017-05-17] MEDS: THIAMINE HCL 100 MG TABLET (FP) PO SCH (22:34)
[2017-05-18] MEDS: diazePAM 5 MG TABLET PO PRN ×5 (01:46→18:29)
[2017-05-18] MEDS ORDERED: METHADONE HCL 10 MG TABLET (FOR DETOX USE ONLY) PO ONE (10:00)
[2017-05-18] MEDS: RALTEGRAVIR POTASSIUM 400 MG TAB PO SCH (10:26)
[2017-05-18] MEDS: NICOTINE 14 MG/24 HOURS TOPICAL PATCH TD SCH (10:26)
[2017-05-18] MEDS: PRENATAL VITAMINS W/ FOLIC ACID TABLET (FP) PO SCH (10:26)
[2017-05-18] MEDS: amLODIPine BESYLATE 5 MG TABLET (FP) PO SCH (10:26)
[2017-05-18 10:36] LABS: MCH 31.7 pg (25.7-33.7); MCHC 32.9 g/dl (32.0-35.9); MEAN CELL VOLUME 96.5 fl (80-96); MEAN PLT VOLUME 10.7 fl (7.5-11.1); PLATELET COUNT 96 K/MM3 (134-434); RDW 14.6 % (11.9-15.9); WHITE BLOOD COUNT 9.5 K/mm3 (4.0-10.0)
[2017-05-18 11:01] LABS: ALBUMIN 3.2 g/dl (3.4-5.0); ALK PHOS 64 U/L (45-117); ANION GAP 7 (8-16); BILIRUBIN,TOTAL 0.7 mg/dL (0.2-1.0); CALCIUM 8.6 mg/dL (8.5-10.1); CO2 30 mmol/L (21-32); CREATININE 1.2 mg/dL (0.7-1.3); GLUCOSE,RANDOM 94 mg/dL (74-106); SGOT/AST 20 U/L (15-37); SGPT/ALT 25 U/L (12-78); TOT PROT 6.9 g/dl (6.4-8.2)
[2017-05-18] MEDS: ABACAVIR SULFATE 300 MG TABLET PO SCH (13:51)
--- NOTE | 2017-05-18 16:31 | PN ---
S COWS - Scale Resting Pulse: 1= [place] 81-100 Sweatin= Chills/Flushing Restless Observation: 1= Difficult to Sit Still Pupil Size: 0= Normal to Room Light Bone or Joint Aches: 1= Mild Discomfort Runny Nose/ Eye Tearin= Nasal Congestion GI Upset > 30mins: 1= Stomach Cramp Tremor Observation of Outstretched Hands: 2= Slight Tremor Visible Yawning Observation: 1= 1-2x During Session Anxiety or Irritability: 2=Irritable/Anxious Goose Flesh Skin: 3=Piloerection COWS Score: 14 BHS Progress Note (SOAP) Subjective: Anxious, Tremors, Constipation. Objective: PT. A & O X 3, OBSERVED AMBULATING ON UNIT WITH ASSISTANCE OF A CANE. NO ACUTE DISTRESS. 05/18/17 16:42 Vital Signs Temperature 97.0 F L 05/18/17 14:51 Pulse Rate 84 05/18/17 14:51 Respiratory Rate 18 05/18/17 14:51 Blood Pressure 112/74 05/18/17 14:51 O2 Sat by Pulse Oximetry (%) Laboratory Tests 05/17/17 05/18/17 05/18/17 15:35 07:00 07:00 WBC 9.5 D RBC 4.24 Hgb 13.5 Hct 40.9 MCV 96.5 H MCH 31.7 MCHC 32.9 RDW 14.6 Plt Count 96 L MPV 10.7 Sodium 139 Potassium 4.4 Chloride 102 Carbon Dioxide 30 Anion Gap 7 L BUN 16 Creatinine 1.2 Creat Clearance w eGFR > 60 Random Glucose 94 Calcium 8.6 Total Bilirubin 0.7 D AST 20 ALT 25 D Alkaline Phosphatase 64 Total Protein 6.9 Albumin 3.2 L Urine Color Yellow Urine Appearance Clear Urine pH 6.0 Ur Specific [place] 1.015 Urine Protein Negative Urine Glucose (UA) Negative Urine Ketones Negative Urine Blood Negative Urine Nitrite Negative Urine Bilirubin Negative Urine Urobilinogen Negative Ur Leukocyte Esterase 1+ H Urine RBC 1 Urine WBC 18 Ur Epithelial Cells Rare RPR Titer 05/18/17 07:00 WBC RBC Hgb Hct MCV MCH MCHC RDW Plt Count MPV Sodium Potassium Chloride Carbon Dioxide Anion Gap BUN Creatinine Creat Clearance w eGFR Random Glucose Calcium Total Bilirubin AST ALT Alkaline Phosphatase Total Protein Albumin Urine Color Urine Appearance Urine pH Ur Specific [place] Urine Protein Urine Glucose (UA) Urine Ketones Urine Blood Urine Nitrite Urine Bilirubin Urine Urobilinogen Ur Leukocyte Esterase Urine RBC Urine WBC Ur Epithelial Cells RPR Titer Nonreactive LABS NOTED. Assessment: 05/18/17 16:42 WITHDRAWAL SYMPTOMS. Plan: CONTINUE DETOX. REPEAT UA WITH URINE C + S FOR ADMISSION UA ABNORMALITIES.
[2017-05-18] MEDS: guaiFENesin/D-METHORPHAN HB 10 ML UNIT-DOSE CUPS PO PRN (18:29)
[2017-05-18] MEDS: THIAMINE HCL 100 MG TABLET (FP) PO SCH (22:25)
[2017-05-18] MEDS: ZOLPIDEM TARTRATE 10 MG TABLET (PARK CARE ONLY) PO PRN (22:25)
[2017-05-18] MEDS: QUEtiapine FUMARATE 25 MG TABLET (FP) PO SCH (22:25)
[2017-05-19] MEDS: diazePAM 5 MG TABLET PO PRN ×4 (01:59→17:58)
[2017-05-19] MEDS: guaiFENesin/D-METHORPHAN HB 10 ML UNIT-DOSE CUPS PO PRN ×3 (05:39→17:58)
[2017-05-19] MEDS ORDERED: METHADONE HCL 5 MG TABLET (FOR DETOX USE ONLY) PO ONE (10:00)
[2017-05-19] MEDS: PRENATAL VITAMINS W/ FOLIC ACID TABLET (FP) PO SCH (10:07)
[2017-05-19] MEDS: ABACAVIR SULFATE 300 MG TABLET PO SCH (10:07)
[2017-05-19] MEDS: amLODIPine BESYLATE 5 MG TABLET (FP) PO SCH (10:07)
[2017-05-19] MEDS: NICOTINE 14 MG/24 HOURS TOPICAL PATCH TD SCH (10:08)
[2017-05-19] MEDS: RALTEGRAVIR POTASSIUM 400 MG TAB PO SCH (10:08)
--- NOTE | 2017-05-19 17:23 | PN ---
BHS COWS - Scale Resting Pulse: 1= [place] 81-100 Sweatin=Flushed/Facial Moisture Restless Observation: 1= Difficult to Sit Still Pupil Size: 0= Normal to Room Light Bone or Joint Aches: 2= Severe Diffuse Aches Runny Nose/ Eye Tearin= Runny Nose/Eyes GI Upset > 30mins: 1= Stomach Cramp Tremor Observation of Outstretched Hands: 2= Slight Tremor Visible Yawning Observation: 1= 1-2x During Session Anxiety or Irritability: 2=Irritable/Anxious Goose Flesh Skin: 0=Smooth Skin COWS Score: 14 BHS Progress Note (SOAP) Subjective: Tremors, Sweating, Fatigue. Objective: PT. A & O X 3, OBSERVED AMBULATING ON UNIT WITH ASSISTANCE OF A CANE. NO ACUTE DISTRESS. 05/19/17 17:21 Vital Signs Temperature 97.4 F L 05/19/17 13:19 Pulse Rate 86 05/19/17 13:19 Respiratory Rate 18 05/19/17 13:19 Blood Pressure 111/75 05/19/17 13:19 O2 Sat by Pulse Oximetry (%) Laboratory Tests 05/17/17 05/18/17 05/18/17 15:35 07:00 07:00 WBC 9.5 D RBC 4.24 Hgb 13.5 Hct 40.9 MCV 96.5 H MCH 31.7 MCHC 32.9 RDW 14.6 Plt Count 96 L MPV 10.7 Sodium 139 Potassium 4.4 Chloride 102 Carbon Dioxide 30 Anion Gap 7 L BUN 16 Creatinine 1.2 Creat Clearance w eGFR > 60 Random Glucose 94 Calcium 8.6 Total Bilirubin 0.7 D AST 20 ALT 25 D Alkaline Phosphatase 64 Total Protein 6.9 Albumin 3.2 L Urine Color Yellow Urine Appearance Clear Urine pH 6.0 Ur Specific [place] 1.015 Urine Protein Negative Urine Glucose (UA) Negative Urine Ketones Negative Urine Blood Negative Urine Nitrite Negative Urine Bilirubin Negative Urine Urobilinogen Negative Ur Leukocyte Esterase 1+ H Urine RBC 1 Urine WBC 18 Ur Epithelial Cells Rare RPR Titer 05/18/17 07:00 WBC RBC Hgb Hct MCV MCH MCHC RDW Plt Count MPV Sodium Potassium Chloride Carbon Dioxide Anion Gap BUN Creatinine Creat Clearance w eGFR Random Glucose Calcium Total Bilirubin AST ALT Alkaline Phosphatase Total Protein Albumin Urine Color Urine Appearance Urine pH Ur Specific [place] Urine Protein Urine Glucose (UA) Urine Ketones Urine Blood Urine Nitrite Urine Bilirubin Urine Urobilinogen Ur Leukocyte Esterase Urine RBC Urine WBC Ur Epithelial Cells RPR Titer Nonreactive LABS NOTED. RESULTS OF REPEAT UA AND URINE C + S PENDING. 05/19/17 17:23 Assessment: 05/19/17 17:21 WITHDRAWAL SYMPTOMS. Plan: CONTINUE DETOX.
[2017-05-19 18:34] LABS: URINE APPEARANCE SLCLOUDY; URINE BILIRUBIN NEGATIVE (NEGATIVE); URINE BLOOD NEGATIVE (NEGATIVE); URINE COLOR YELLOW; URINE GLUCOSE (UA) NEGATIVE (NEGATIVE); URINE KETONE NEGATIVE (NEGATIVE); URINE NITRITE NEGATIVE (NEGATIVE); URINE PROTEIN NEGATIVE (NEGATIVE); URINE UROBILINOGEN NEGATIVE mg/dL (0.2-1.0)
[2017-05-19 18:38] LABS: URINE LEUK ESTERASE 3+ (NEGATIVE)
[2017-05-19 18:40] LABS: URINE RBC 2 /hpf (0-3); URINE WBC 25 /hpf (3-5)
[2017-05-19] MEDS: ZOLPIDEM TARTRATE 10 MG TABLET (PARK CARE ONLY) PO PRN (22:30)
[2017-05-19] MEDS: QUEtiapine FUMARATE 25 MG TABLET (FP) PO SCH (22:30)
[2017-05-19] MEDS: THIAMINE HCL 100 MG TABLET (FP) PO SCH (22:30)
[2017-05-20] MEDS: guaiFENesin/D-METHORPHAN HB 10 ML UNIT-DOSE CUPS PO PRN ×2 (05:43→18:10)
[2017-05-20] MEDS: diazePAM 5 MG TABLET PO PRN ×2 (05:43→10:36)
[2017-05-20] MEDS ORDERED: METHADONE HCL 5 MG TABLET (FOR DETOX USE ONLY) PO ONE (10:00)
[2017-05-20] MEDS: ABACAVIR SULFATE 300 MG TABLET PO SCH (10:36)
[2017-05-20] MEDS: PRENATAL VITAMINS W/ FOLIC ACID TABLET (FP) PO SCH (10:36)
[2017-05-20] MEDS: RALTEGRAVIR POTASSIUM 400 MG TAB PO SCH (10:37)
[2017-05-20] MEDS: amLODIPine BESYLATE 5 MG TABLET (FP) PO SCH (10:37)
[2017-05-20] MEDS: NICOTINE 14 MG/24 HOURS TOPICAL PATCH TD SCH (10:37)
--- NOTE | 2017-05-20 10:58 | PN ---
BHS Progress Note (SOAP) Subjective: Tremors, Body Aches, Constipation. Objective: PT. A & O X 2 (DISORIENTED ABOUT DAY / DATE). PT. OBSERVED AMBULATING ON UNIT WITH ASSISTANCE OF A CANE. NO ACUTE DISTRESS. PT. REPORTS URINARY FREQUENCY AND "TINGLING" SENSATION WHEN URINATING. PT. DENIES BURNING, PAIN WHEN URINATING. 05/20/17 10:53 Vital Signs Temperature 96.5 F L 05/20/17 09:13 Pulse Rate 89 05/20/17 09:13 Respiratory Rate 18 05/20/17 09:13 Blood Pressure 119/77 05/20/17 09:13 O2 Sat by Pulse Oximetry (%) Laboratory Tests 05/17/17 05/18/17 05/18/17 15:35 07:00 07:00 WBC 9.5 D RBC 4.24 Hgb 13.5 Hct 40.9 MCV 96.5 H MCH 31.7 MCHC 32.9 RDW 14.6 Plt Count 96 L MPV 10.7 Sodium 139 Potassium 4.4 Chloride 102 Carbon Dioxide 30 Anion Gap 7 L BUN 16 Creatinine 1.2 Creat Clearance w eGFR > 60 Random Glucose 94 Calcium 8.6 Total Bilirubin 0.7 D AST 20 ALT 25 D Alkaline Phosphatase 64 Total Protein 6.9 Albumin 3.2 L Urine Color Yellow Urine Appearance Clear Urine pH 6.0 Ur Specific [place] 1.015 Urine Protein Negative Urine Glucose (UA) Negative Urine Ketones Negative Urine Blood Negative Urine Nitrite Negative Urine Bilirubin Negative Urine Urobilinogen Negative Ur Leukocyte Esterase 1+ H Urine RBC 1 Urine WBC 18 Ur Epithelial Cells Rare RPR Titer 05/18/17 05/19/17 07:00 12:18 WBC RBC Hgb Hct MCV MCH MCHC RDW Plt Count MPV Sodium Potassium Chloride Carbon Dioxide Anion Gap BUN Creatinine Creat Clearance w eGFR Random Glucose Calcium Total Bilirubin AST ALT Alkaline Phosphatase Total Protein Albumin Urine Color Yellow Urine Appearance Slcloudy Urine pH 5.0 Ur Specific [place] 1.010 Urine Protein Negative Urine Glucose (UA) Negative Urine Ketones Negative Urine Blood Negative Urine Nitrite Negative Urine Bilirubin Negative Urine Urobilinogen Negative Ur Leukocyte Esterase 3+ H D Urine RBC 2 Urine WBC 25 Ur Epithelial Cells Rare RPR Titer Nonreactive LABS NOTED. RESULTS OF REPEAT UA NOTED. RESULT OF URINE C + S PENDING. 05/20/17 10:58 05/20/17 16:35 Assessment: 09/05/17 10:54 WITHDRAWAL SYMPTOMS. Plan: CONTINUE DETOX. START BACTRIM DS, PO BID FOR POSSIBLE UTI (URINE C + S RESULT PENDING.) ENCOURAGED PT. TO INCREASE DAILY PO FLUID / WATER INTAKE.
[2017-05-20] MEDS: SULFAMETHOXAZOLE/TRIMETHOPRIM 800MG/160MG D.S. TABLET PO SCH ×2 (15:07→22:44)
[2017-05-20] MEDS: THIAMINE HCL 100 MG TABLET (FP) PO SCH (22:43)
[2017-05-20] MEDS: QUEtiapine FUMARATE 25 MG TABLET (FP) PO SCH (22:44)
[2017-05-20] MEDS: ZOLPIDEM TARTRATE 10 MG TABLET (PARK CARE ONLY) PO PRN (22:44)
[2017-05-21] MEDS ORDERED: METHADONE HCL 10 MG TABLET (FOR DETOX USE ONLY) PO ONE (10:00)
[2017-05-21] MEDS: ABACAVIR SULFATE 300 MG TABLET PO SCH (10:35)
[2017-05-21] MEDS: RALTEGRAVIR POTASSIUM 400 MG TAB PO SCH (10:35)
[2017-05-21] MEDS: PRENATAL VITAMINS W/ FOLIC ACID TABLET (FP) PO SCH (10:35)
[2017-05-21] MEDS: SULFAMETHOXAZOLE/TRIMETHOPRIM 800MG/160MG D.S. TABLET PO SCH ×2 (10:35→22:32)
[2017-05-21] MEDS: amLODIPine BESYLATE 5 MG TABLET (FP) PO SCH (10:36)
[2017-05-21] MEDS: NICOTINE 14 MG/24 HOURS TOPICAL PATCH TD SCH (10:37)
--- NOTE | 2017-05-21 12:35 | PN ---
[facility] Progress Note (SOAP) Subjective: DECREASED ANXIETY,SWEATS. OOB WITH SAFETY PRECAUTIONS. ADEQUATE SELF CARE. STABLE GAIT. Objective: 05/21/17 12:34 Vital Signs Temperature 96.6 F L 05/21/17 09:36 Pulse Rate 83 05/21/17 09:36 Respiratory Rate 18 05/21/17 09:36 Blood Pressure 107/73 05/21/17 09:36 O2 Sat by Pulse Oximetry (%) Laboratory Last Values WBC 9.5 K/mm3 (4.0-10.0) D 05/18/17 07:00 RBC 4.24 M/mm3 (4.00-5.60) 05/18/17 07:00 Hgb 13.5 GM/dL (11.7-16.9) 05/18/17 07:00 Hct 40.9 % (35.4-49) 05/18/17 07:00 MCV 96.5 fl (80-96) H 05/18/17 07:00 MCH 31.7 pg (25.7-33.7) 05/18/17 07:00 MCHC 32.9 g/dl (32.0-35.9) 05/18/17 07:00 RDW 14.6 % (11.9-15.9) 05/18/17 07:00 Plt Count 96 K/MM3 (134-434) L 05/18/17 07:00 MPV 10.7 fl (7.5-11.1) 05/18/17 07:00 Sodium 139 mmol/L (136-145) 05/18/17 07:00 Potassium 4.4 mmol/L (3.5-5.1) 05/18/17 07:00 Chloride 102 mmol/L (98-107) 05/18/17 07:00 Carbon Dioxide 30 mmol/L (21-32) 05/18/17 07:00 Anion Gap 7 (8-16) L 05/18/17 07:00 BUN 16 mg/dL (7-18) 05/18/17 07:00 Creatinine 1.2 mg/dL (0.7-1.3) 05/18/17 07:00 Creat Clearance w eGFR > 60 (>60) 05/18/17 07:00 Random Glucose 94 mg/dL (74-106) 05/18/17 07:00 Calcium 8.6 mg/dL (8.5-10.1) 05/18/17 07:00 Total Bilirubin 0.7 mg/dL (0.2-1.0) D 05/18/17 07:00 AST 20 U/L (15-37) 05/18/17 07:00 ALT 25 U/L (12-78) D 05/18/17 07:00 Alkaline Phosphatase 64 U/L (45-117) 05/18/17 07:00 Total Protein 6.9 g/dl (6.4-8.2) 05/18/17 07:00 Albumin 3.2 g/dl (3.4-5.0) L 05/18/17 07:00 Urine Color Yellow 05/19/17 12:18 Urine Appearance Slcloudy 05/19/17 12:18 Urine pH 5.0 (5.0-8.0) 05/19/17 12:[address] 1.010 (1.005-1.025) 05/19/17 12:18 Urine Protein Negative (NEGATIVE) 05/19/17 12:18 Urine Glucose (UA) Negative (NEGATIVE) 05/19/17 12:18 Urine Ketones Negative (NEGATIVE) 05/19/17 12:18 Urine Blood Negative (NEGATIVE) 05/19/17 12:18 Urine Nitrite Negative (NEGATIVE) 05/19/17 12:18 Urine Bilirubin Negative (NEGATIVE) 05/19/17 12:18 Urine Urobilinogen Negative mg/dL (0.2-1.0) 05/19/17 12:18 Ur Leukocyte Esterase 3+ (NEGATIVE) H D 05/19/17 12:18 Urine RBC 2 /hpf (0-3) 05/19/17 12:18 Urine WBC 25 /hpf (3-5) 05/19/17 12:18 Ur Epithelial Cells Rare /hpf (FEW) 05/19/17 12:18 RPR Titer Nonreactive (NONREACTIVE) 05/18/17 07:00 UA NOTED Assessment: 05/21/17 12:35 WITHDRAWAL SX Plan: CONTINUE DETOX UA;UC
[2017-05-21] MEDS: guaiFENesin/D-METHORPHAN HB 10 ML UNIT-DOSE CUPS PO PRN (13:04)
[2017-05-21] MEDS: ZOLPIDEM TARTRATE 10 MG TABLET (PARK CARE ONLY) PO PRN (22:32)
[2017-05-21] MEDS: THIAMINE HCL 100 MG TABLET (FP) PO SCH (22:32)
[2017-05-21] MEDS: QUEtiapine FUMARATE 25 MG TABLET (FP) PO SCH (22:32)
[2017-05-22] MEDS ORDERED: METHADONE HCL 5 MG TABLET (FOR DETOX USE ONLY) PO ONE (06:00)
[2017-05-22 06:55] VITALS: BP 112/79; PULSE 80; TEMP 96.6
--- NOTE | 2017-05-22 20:02 | DS ---
[facility] Detox Discharge Summary Admission Date: 05/17/17 Discharge Date: 05/22/17 - History Present History: Opioid Dependence Additional Comments: PATIENT GOING HOME. PATIENT WILL RETURN TO [facility], MEDICAL PROVIDER DR. Benjamin ALATORRE MD ([place] FOR MEDICAL AFTERCARE. PATIENT ADVISED TO PURSUE LOCAL OUTPATIENT 12-STEP / NA PROGRAMS FOR FOLLOW-UP AFTERCARE. PATIENT ALSO ADVISED TO COMPLETE FULL COURSE OF ANTIBIOTIC (BACTRIM DS) STARTED FOR UTI WHILE HE WAS ADMITTED FOR DETOX AND TO FOLLOW-UP WITH DR. ALATORRE AFTER DISCHARGE. PRESCRIPTION FOR REMAINDER OF FULL COURSE OF ANTIBIOTIC SENT TO PATIENT'S PHARMACY ([facility], [place] PRIOR TO DISCHARGE. PATIENT WAS DISCHARGED FROM DETOX UNIT IN STABLE MEDICAL CONDITION. Pertinent Past History: HIV, Psoriatic Arthritis, Insomnia, Hpe C (Treated), HTN, Legally Blind, Thrombocytopenia. - Physical Exam Results Vital Signs: Vital Signs Temperature 96.6 F L 05/22/17 06:54 Pulse Rate 80 05/22/17 06:54 Respiratory Rate 18 05/22/17 06:54 Blood Pressure 112/79 05/22/17 06:54 O2 Sat by Pulse Oximetry (%) Pertinent Admission Physical Exam Findings: WITHDRAWAL SYMPTOMS. Laboratory Tests 05/17/17 05/18/17 05/18/17 15:35 07:00 07:00 WBC 9.5 D RBC 4.24 Hgb 13.5 Hct 40.9 MCV 96.5 H MCH 31.7 MCHC 32.9 RDW 14.6 Plt Count 96 L MPV 10.7 Sodium 139 Potassium 4.4 Chloride 102 Carbon Dioxide 30 Anion Gap 7 L BUN 16 Creatinine 1.2 Creat Clearance w eGFR > 60 Random Glucose 94 Calcium 8.6 Total Bilirubin 0.7 D AST 20 ALT 25 D Alkaline Phosphatase 64 Total Protein 6.9 Albumin 3.2 L Urine Color Yellow Urine Appearance Clear Urine pH 6.0 Ur Specific [place] 1.015 Urine Protein Negative Urine Glucose (UA) Negative Urine Ketones Negative Urine Blood Negative Urine Nitrite Negative Urine Bilirubin Negative Urine Urobilinogen Negative Ur Leukocyte Esterase 1+ H Urine RBC 1 Urine WBC 18 Ur Epithelial Cells Rare RPR Titer 05/18/17 05/19/17 07:00 12:18 WBC RBC Hgb Hct MCV MCH MCHC RDW Plt Count MPV Sodium Potassium Chloride Carbon Dioxide Anion Gap BUN Creatinine Creat Clearance w eGFR Random Glucose Calcium Total Bilirubin AST ALT Alkaline Phosphatase Total Protein Albumin Urine Color Yellow Urine Appearance Slcloudy Urine pH 5.0 Ur Specific [place] 1.010 Urine Protein Negative Urine Glucose (UA) Negative Urine Ketones Negative Urine Blood Negative Urine Nitrite Negative Urine Bilirubin Negative Urine Urobilinogen Negative Ur Leukocyte Esterase 3+ H D Urine RBC 2 Urine WBC 25 Ur Epithelial Cells Rare RPR Titer Nonreactive LABS NOTED. - Treatment Hospital Course: Detox Protocol Followed, Detoxed Safely, Responded well, Discharged Condition Good Patient has Accepted a Rehab Referral to: PT GOING HOME. ADVISED TO CONSIDER LOCAL 12-STEP/NA PROOGRAMS FOR AFTERCARE - Medication Discharge Medications: Ambulatory Orders Amlodipine Besylate [Norvasc -] 5 mg PO DAILY #30 tablet 02/14/17 Mirtazapine [Remeron -] 15 mg PO DAILY #30 tablet 03/27/17 Quetiapine Fumarate [Seroquel -] 25 mg PO HS #30 tablet 03/27/17 Cholecalciferol (Vitamin D3) [Vitamin D3 -] 800 unit PO DAILY #60 tablet Clotrimazole/Betamet Diprop [Lotrisone Cream (Small Tube)] 1 applic TP BID #1 tube 04/18/17 Abacavir/Dolutegravir/Lamivudi [Triumeq Tablet] 1 each PO DAILY 05/17/17 Sulfamethoxazole/Trimethoprim [Bactrim Ds -] 1 tab PO BID #16 tablet 05/22/17 - Diagnosis (1) Drug-induced mood disorder Status: Acute (2) Insomnia Status: Acute Qualifiers: Insomnia type: unspecified Qualified Code(s): G47.00 - Insomnia, unspecified (3) Nicotine dependence Status: Chronic Qualifiers: Nicotine product type: cigarettes Substance use status: in withdrawal Qualified Code(s): F17.213 - Nicotine dependence, cigarettes, with withdrawal (4) Opioid dependence with withdrawal Status: Acute (5) Blindness, legal Status: Chronic (6) Depressive disorder Status: Chronic (7) HIV (human immunodeficiency virus infection) Status: Chronic (8) Hepatitis C infection Status: Chronic Qualifiers: Viral hepatitis chronicity: chronic Hepatic coma status: without hepatic coma Qualified Code(s): B18.2 - Chronic viral hepatitis C (9) Hypertension Status: Chronic Qualifiers: Hypertension type: essential hypertension Qualified Code(s): I10 - Essential (primary) hypertension (10) Hypertension goal BP (blood pressure) < 140/80 Status: Chronic (11) Psoriatic arthritis Status: Chronic (12) Requires sighted guide Status: Chronic (13) Thrombocytopenia Status: Chronic - AMA Did Patient Leave Against Medical Advice: No
== END 2017-05-22 08:58 | disposition home or self-care (01) | DRG 897 ==
LOC: YASAS 09:27 → Y3N 11:02
PROVIDERS: ADMIT Internal Medicine Addiction Medicine; ATTEND Internal Medicine Addiction Medicine
PROC: HZ2ZZZZ Detoxification Services for Substance Abuse Treatment (ICD-10-PCS; principal; 2017-05-17)
DX: F11.23 Opioid dependence with withdrawal (principal); F17.213 Nicotine dependence, cigarettes, with withdrawal; F19.24 Other psychoactive substance dependence with psychoactive substance-induced mood disorder; F32.9 Major depressive disorder, single episode, unspecified; Z21 Asymptomatic human immunodeficiency virus [HIV] infection status; B18.2 Chronic viral hepatitis C; I10 Essential (primary) hypertension; L40.50 Arthropathic psoriasis, unspecified; G47.00 Insomnia, unspecified; H54.8 Legal blindness, as defined in USA; D64.9 Anemia, unspecified; K76.0 Fatty (change of) liver, not elsewhere classified; Z88.0 Allergy status to penicillin
CPT/HCPCS: 36415; 80053; 81003; 81015; 85027; 86593; 87086; 93005; 93010

== ENCOUNTER → 2019-05-14 | Outpatient (CLI) | payer OTHER | LOC: YHH 15:23 ==

== ENCOUNTER 2021-07-12 06:39 | Inpatient (IN) | payer OTHER ==
[2021-07-12 08:57] VITALS: BMI 26.9
[2021-07-12] MEDS ORDERED: methaDONE HCL 10 MG TABLET (FOR DETOX USE ONLY) PO ONE (09:28)
[2021-07-12] MEDS ORDERED: NICOTINE 10 MG CARTRIDGE (INHALER) IH PRN (09:28)
[2021-07-12] MEDS ORDERED: MENTHOL/PHENOL 1 EACH UD MM PRN (09:28)
[2021-07-12] MEDS ORDERED: ONDANSETRON *ODT* 4 MG TABLET SL PRN (09:28)
[2021-07-12] MEDS ORDERED: cloNIDine HCL 0.1 MG TABLET PO PRN (09:28)
[2021-07-12] MEDS ORDERED: IBUPROFEN 400 MG TABLET (FP) PO PRN (09:28)
[2021-07-12] MEDS ORDERED: MAG HYDROX/AL HYDROX/SIMETH 30 ML UNIT-DOSE CUP PO PRN (09:28)
[2021-07-12] MEDS ORDERED: MAGNESIUM CITRATE 300 ML BOTTLE PO PRN (09:28)
[2021-07-12] MEDS ORDERED: METHOCARBAMOL 500 MG TABLET PO PRN (09:28)
[2021-07-12] MEDS ORDERED: ACETAMINOPHEN 325 MG TABLET (FP) PO PRN (09:28)
[2021-07-12] MEDS ORDERED: BISMUTH SUBSALICYLATE 262 MG/15 ML BTL PO PRN (09:28)
[2021-07-12] MEDS ORDERED: MAGNESIUM HYDROX 2400MG/30ML ORAL SUSPENSION 30 ML CUP PO PRN (09:28)
[2021-07-12] MEDS ORDERED: ALBUTEROL SO4 HFA INHALER IH PRN (09:32)
[2021-07-12] MEDS ORDERED: methaDONE HCL 10 MG TABLET (FOR DETOX USE ONLY) ONE (09:49)
[2021-07-12] MEDS ORDERED: hydrOXYzine PAMOATE 25 MG CAPSULE (FP) PO PRN (10:00)
[2021-07-12] MEDS: amLODIPine BESYLATE 5 MG TABLET (FP) PO SCH (11:13)
[2021-07-12] MEDS: NICOTINE 14 MG/24 HOURS TOPICAL PATCH TD SCH (11:13)
[2021-07-12] MEDS: PRENATAL VITAMINS W/ FOLIC ACID TABLET (FP) PO SCH (11:13)
[2021-07-12 14:54] LABS: HEMOGLOBIN 12.7 GM/dL (11.7-16.9); MCH 30.8 pg (25.7-33.7); MCHC 34.4 g/dl (32.0-35.9); MEAN CELL VOLUME 89.5 fl (80-96); MEAN PLT VOLUME 10.3 fl (7.5-11.1); PLATELET COUNT 139 10^3/uL (134-434); RBC 4.13 M/mm3 (4.00-5.60); RDW 13.6 % (11.9-15.9); WHITE BLOOD COUNT 6.7 K/mm3 (4.0-10.0)
[2021-07-12 15:04] LABS: ALBUMIN 3.7 g/dl (3.4-5.0); CALCIUM 9.7 mg/dL (8.5-10.1)
[2021-07-12] MEDS: ABACAVIR/DOLUTEGRAVIR/LAMIVUDI (TRIUMEQ) TABLET -NF PO SCH (15:05)
[2021-07-12 15:09] LABS: BILIRUBIN,TOTAL 0.3 mg/dL (0.2-1); TOT PROT 8.4 g/dl (6.4-8.2)
[2021-07-12] MEDS: MELATONIN 5 MG TABLETS PO SCH (22:50)
[2021-07-12] MEDS: THIAMINE HCL 100 MG TABLET (FP) PO SCH (22:50)
[2021-07-13] MEDS ORDERED: methaDONE HCL 10 MG TABLET (FOR DETOX USE ONLY) ONE (09:57)
[2021-07-13] MEDS: ABACAVIR/DOLUTEGRAVIR/LAMIVUDI (TRIUMEQ) TABLET -NF PO SCH (10:58)
[2021-07-13] MEDS: PRENATAL VITAMINS W/ FOLIC ACID TABLET (FP) PO SCH (10:58)
[2021-07-13] MEDS: NICOTINE 14 MG/24 HOURS TOPICAL PATCH TD SCH (11:00)
[2021-07-13] MEDS: amLODIPine BESYLATE 5 MG TABLET (FP) PO SCH (11:01)
[2021-07-13] MEDS: diazePAM 5 MG TABLET PO PRN ×2 (14:19→22:28)
[2021-07-13] MEDS: MELATONIN 5 MG TABLETS PO SCH (22:27)
[2021-07-13] MEDS: THIAMINE HCL 100 MG TABLET (FP) PO SCH (22:27)
[2021-07-14] MEDS ORDERED: methaDONE HCL 10 MG TABLET (FOR DETOX USE ONLY) PO ONE (10:00)
[2021-07-14] MEDS: PRENATAL VITAMINS W/ FOLIC ACID TABLET (FP) PO SCH (10:29)
[2021-07-14] MEDS: amLODIPine BESYLATE 5 MG TABLET (FP) PO SCH (10:30)
[2021-07-14] MEDS: NICOTINE 14 MG/24 HOURS TOPICAL PATCH TD SCH (10:30)
[2021-07-14] MEDS: ABACAVIR/DOLUTEGRAVIR/LAMIVUDI (TRIUMEQ) TABLET -NF PO SCH (10:31)
[2021-07-14] MEDS: diazePAM 5 MG TABLET PO PRN ×2 (10:57→22:01)
[2021-07-14] MEDS: THIAMINE HCL 100 MG TABLET (FP) PO SCH (22:01)
[2021-07-14] MEDS: MELATONIN 5 MG TABLETS PO SCH (22:01)
[2021-07-15] MEDS ORDERED: methaDONE HCL 10 MG TABLET (FOR DETOX USE ONLY) ONE (09:28)
[2021-07-15] MEDS: ABACAVIR/DOLUTEGRAVIR/LAMIVUDI (TRIUMEQ) TABLET -NF PO SCH (10:41)
[2021-07-15] MEDS: PRENATAL VITAMINS W/ FOLIC ACID TABLET (FP) PO SCH (10:42)
[2021-07-15] MEDS: amLODIPine BESYLATE 5 MG TABLET (FP) PO SCH (10:42)
[2021-07-15] MEDS: NICOTINE 14 MG/24 HOURS TOPICAL PATCH TD SCH (10:43)
[2021-07-15] MEDS: diazePAM 5 MG TABLET PO PRN ×3 (10:56→22:05)
[2021-07-15] MEDS: ACETAMINOPHEN 325 MG TABLET (FP) PO PRN (15:15)
[2021-07-15] MEDS: MELATONIN 5 MG TABLETS PO SCH (22:05)
[2021-07-15] MEDS: THIAMINE HCL 100 MG TABLET (FP) PO SCH (22:05)
[2021-07-16] MEDS: ACETAMINOPHEN 325 MG TABLET (FP) PO PRN (01:59)
[2021-07-16] MEDS: diazePAM 5 MG TABLET PO PRN (02:44)
[2021-07-16] MEDS ORDERED: MASKS NR ONE (07:07)
[2021-07-16 08:53] VITALS: BP 126/74; PULSE 80; TEMP 96.9
[2021-07-16] MEDS ORDERED: methaDONE HCL 10 MG TABLET (FOR DETOX USE ONLY) PO ONE (10:00)
== END 2021-07-16 09:23 | disposition home or self-care (01) | DRG 897 ==
LOC: YASAS 06:39 → Y3N 09:32
PROVIDERS: ADMIT Allergy & Immunology; ATTEND Allergy & Immunology
PROC: HZ2ZZZZ Detoxification Services for Substance Abuse Treatment (ICD-10-PCS; principal; 2021-07-12)
DX: F11.23 Opioid dependence with withdrawal (principal); F13.10 Sedative, hypnotic or anxiolytic abuse, uncomplicated; F17.210 Nicotine dependence, cigarettes, uncomplicated; Z21 Asymptomatic human immunodeficiency virus [HIV] infection status; I10 Essential (primary) hypertension; N40.0 Benign prostatic hyperplasia without lower urinary tract symptoms; H54.7 Unspecified visual loss; B18.2 Chronic viral hepatitis C; Z98.890 Other specified postprocedural states; Z88.0 Allergy status to penicillin
CPT/HCPCS: 36415; 80053; 85027; 86780; C9803; J0735; U0003; U0005

== ENCOUNTER 2021-12-03 11:19 | Inpatient (IN) | payer OTHER ==
[2021-12-03] MEDS ORDERED: MAGNESIUM CITRATE 300 ML BOTTLE PO PRN (11:59)
[2021-12-03] MEDS ORDERED: LOPERAMIDE HCL 2 MG CAPSULE PO PRN (11:59)
[2021-12-03] MEDS ORDERED: MAG HYDROX/AL HYDROX/SIMETH 30 ML UNIT-DOSE CUP PO PRN (11:59)
[2021-12-03] MEDS ORDERED: ACETAMINOPHEN 325 MG TABLET (FP) PO PRN (11:59)
[2021-12-03] MEDS ORDERED: MENTHOL/PHENOL 1 EACH UD MM PRN (11:59)
[2021-12-03] MEDS ORDERED: MAGNESIUM HYDROX 2400MG/30ML ORAL SUSPENSION 30 ML CUP PO PRN (11:59)
[2021-12-03] MEDS ORDERED: methaDONE HCL 10 MG TABLET (FOR DETOX USE ONLY) PO ONE (11:59)
[2021-12-03] MEDS ORDERED: cloNIDine HCL 0.1 MG TABLET PO PRN (11:59)
[2021-12-03] MEDS ORDERED: IBUPROFEN 400 MG TABLET (FP) PO PRN (11:59)
[2021-12-03] MEDS ORDERED: BISMUTH SUBSALICYLATE 262 MG/15 ML BTL PO PRN (11:59)
[2021-12-03] MEDS ORDERED: NICOTINE 10 MG CARTRIDGE (INHALER) IH PRN (11:59)
[2021-12-03] MEDS ORDERED: ONDANSETRON *ODT* 4 MG TABLET SL PRN (11:59)
[2021-12-03 14:03] VITALS: BMI 25.7
[2021-12-03] MEDS: PRENATAL VITAMINS W/ FOLIC ACID TABLET (FP) PO SCH (15:29)
[2021-12-03] MEDS: NICOTINE 7 MG/24 HOURS TOPICAL PATCH TD SCH (15:29)
[2021-12-03] MEDS: hydrOXYzine PAMOATE 25 MG CAPSULE (FP) PO SCH ×3 (15:30→22:17)
[2021-12-03 17:52] LABS: HEMATOCRIT 37.7 % (35.4-49); HEMOGLOBIN 12.6 GM/dL (11.7-16.9); MCH 30.3 pg (25.7-33.7); MCHC 33.3 g/dl (32.0-35.9); MEAN PLT VOLUME 9.8 fl (7.5-11.1); PLATELET COUNT 150 10^3/uL (134-434); RBC 4.14 M/mm3 (4.00-5.60); RDW 15.1 % (11.9-15.9); WHITE BLOOD COUNT 5.3 K/mm3 (4.0-10.0)
[2021-12-03 17:55] LABS: ALBUMIN 3.8 g/dl (3.4-5.0); CALCIUM 9.3 mg/dL (8.5-10.1)
[2021-12-03 17:56] LABS: BLOOD UREA NITROGEN 12.5 mg/dL (7-18)
[2021-12-03 17:59] LABS: CREATININE 1.5 mg/dL (0.55-1.3)
[2021-12-03 18:00] LABS: BILIRUBIN,TOTAL 0.4 mg/dL (0.2-1); TOT PROT 7.9 g/dl (6.4-8.2)
[2021-12-03] MEDS: THIAMINE HCL 100 MG TABLET (FP) PO SCH (22:15)
[2021-12-03] MEDS: MELATONIN 5 MG TABLETS PO SCH (22:16)
[2021-12-04] MEDS: hydrOXYzine PAMOATE 25 MG CAPSULE (FP) PO SCH ×5 (06:48→22:04)
[2021-12-04] MEDS ORDERED: methaDONE HCL 10 MG TABLET (FOR DETOX USE ONLY) ONE (08:52)
[2021-12-04] MEDS: NICOTINE 7 MG/24 HOURS TOPICAL PATCH TD SCH (10:10)
[2021-12-04] MEDS: amLODIPine BESYLATE 5 MG TABLET (FP) PO SCH (10:10)
[2021-12-04] MEDS: PRENATAL VITAMINS W/ FOLIC ACID TABLET (FP) PO SCH (10:10)
[2021-12-04] MEDS: ABACAVIR/DOLUTEGRAVIR/LAMIVUDI (TRIUMEQ) TABLET -NF PO SCH (10:10)
[2021-12-04] MEDS: MINERAL OIL/PET HY-PHL TOPICAL OINTMENT 454 GM JAR TP SCH ×2 (10:12→13:49)
[2021-12-04] MEDS: MELATONIN 5 MG TABLETS PO SCH (22:04)
[2021-12-04] MEDS: THIAMINE HCL 100 MG TABLET (FP) PO SCH (22:04)
[2021-12-04] MEDS: METHOCARBAMOL 500 MG TABLET PO PRN (22:05)
[2021-12-05] MEDS: hydrOXYzine PAMOATE 25 MG CAPSULE (FP) PO SCH ×5 (06:12→22:08)
[2021-12-05 08:08] LABS: SARS-CoV-2 NAA Not Detected (Not Detected)
[2021-12-05] MEDS ORDERED: methaDONE HCL 10 MG TABLET (FOR DETOX USE ONLY) PO ONE (10:00)
[2021-12-05] MEDS: amLODIPine BESYLATE 5 MG TABLET (FP) PO SCH (10:09)
[2021-12-05] MEDS: NICOTINE 7 MG/24 HOURS TOPICAL PATCH TD SCH (10:09)
[2021-12-05] MEDS: PRENATAL VITAMINS W/ FOLIC ACID TABLET (FP) PO SCH (10:09)
[2021-12-05] MEDS: diazePAM 5 MG TABLET PO PRN ×4 (10:36→23:18)
[2021-12-05] MEDS: ABACAVIR/DOLUTEGRAVIR/LAMIVUDI (TRIUMEQ) TABLET -NF PO SCH (10:36)
[2021-12-05] MEDS: MINERAL OIL/PET HY-PHL TOPICAL OINTMENT 454 GM JAR TP SCH (10:36)
[2021-12-05] MEDS: MELATONIN 5 MG TABLETS PO SCH (22:08)
[2021-12-05] MEDS: METHOCARBAMOL 500 MG TABLET PO PRN (22:08)
[2021-12-05] MEDS: THIAMINE HCL 100 MG TABLET (FP) PO SCH (22:08)
[2021-12-06] MEDS: diazePAM 5 MG TABLET PO PRN ×4 (05:03→22:26)
[2021-12-06] MEDS: hydrOXYzine PAMOATE 25 MG CAPSULE (FP) PO SCH ×5 (05:03→22:25)
[2021-12-06] MEDS ORDERED: methaDONE HCL 10 MG TABLET (FOR DETOX USE ONLY) ONE (09:45)
[2021-12-06] MEDS: NICOTINE 7 MG/24 HOURS TOPICAL PATCH TD SCH (10:20)
[2021-12-06] MEDS: PRENATAL VITAMINS W/ FOLIC ACID TABLET (FP) PO SCH (10:21)
[2021-12-06] MEDS: amLODIPine BESYLATE 5 MG TABLET (FP) PO SCH (10:21)
[2021-12-06] MEDS: ABACAVIR/DOLUTEGRAVIR/LAMIVUDI (TRIUMEQ) TABLET -NF PO SCH (10:21)
[2021-12-06] MEDS: MINERAL OIL/PET HY-PHL TOPICAL OINTMENT 454 GM JAR TP SCH (10:22)
[2021-12-06] MEDS: MELATONIN 5 MG TABLETS PO SCH (22:25)
[2021-12-06] MEDS: THIAMINE HCL 100 MG TABLET (FP) PO SCH (22:25)
[2021-12-06] MEDS: METHOCARBAMOL 500 MG TABLET PO PRN (22:26)
[2021-12-07] MEDS: ACETAMINOPHEN 325 MG TABLET (FP) PO PRN (01:16)
[2021-12-07] MEDS: METHOCARBAMOL 500 MG TABLET PO PRN (05:45)
[2021-12-07] MEDS: diazePAM 5 MG TABLET PO PRN ×4 (05:45→22:09)
[2021-12-07] MEDS: hydrOXYzine PAMOATE 25 MG CAPSULE (FP) PO SCH ×5 (05:46→22:07)
[2021-12-07] MEDS ORDERED: methaDONE HCL 10 MG TABLET (FOR DETOX USE ONLY) PO ONE (10:00)
[2021-12-07] MEDS: NICOTINE 7 MG/24 HOURS TOPICAL PATCH TD SCH (10:06)
[2021-12-07] MEDS: PRENATAL VITAMINS W/ FOLIC ACID TABLET (FP) PO SCH (10:08)
[2021-12-07] MEDS: ABACAVIR/DOLUTEGRAVIR/LAMIVUDI (TRIUMEQ) TABLET -NF PO SCH (10:08)
[2021-12-07] MEDS: amLODIPine BESYLATE 5 MG TABLET (FP) PO SCH (10:08)
[2021-12-07] MEDS: MINERAL OIL/PET HY-PHL TOPICAL OINTMENT 454 GM JAR TP SCH (11:13)
[2021-12-07] MEDS: MELATONIN 5 MG TABLETS PO SCH (22:07)
[2021-12-07] MEDS: THIAMINE HCL 100 MG TABLET (FP) PO SCH (22:07)
[2021-12-08] MEDS: METHOCARBAMOL 500 MG TABLET PO PRN (01:28)
[2021-12-08] MEDS: ACETAMINOPHEN 325 MG TABLET (FP) PO PRN (01:28)
[2021-12-08] MEDS: hydrOXYzine PAMOATE 25 MG CAPSULE (FP) PO SCH (05:46)
[2021-12-08 09:12] VITALS: BP 120/70; PULSE 67; TEMP 97.3
== END 2021-12-08 09:20 | disposition home or self-care (01) | DRG 897 ==
LOC: YASAS 11:19 → Y3N 14:31
PROVIDERS: ADMIT Allergy & Immunology; ATTEND Allergy & Immunology
PROC: HZ2ZZZZ Detoxification Services for Substance Abuse Treatment (ICD-10-PCS; principal; 2021-12-03)
DX: F11.23 Opioid dependence with withdrawal (principal); F12.20 Cannabis dependence, uncomplicated; F17.210 Nicotine dependence, cigarettes, uncomplicated; Z21 Asymptomatic human immunodeficiency virus [HIV] infection status; E78.5 Hyperlipidemia, unspecified; I10 Essential (primary) hypertension; J44.9 Chronic obstructive pulmonary disease, unspecified; H54.61 Unqualified visual loss, right eye, normal vision left eye
CPT/HCPCS: 36415; 80053; 85027; 86780; 87811; C9803-CS; J0735; U0003; U0005

== ENCOUNTER 2024-05-13 14:07 | Inpatient (IN) | payer OTHER ==
[2024-05-13 15:17] VITALS: BMI 25.0
[2024-05-13] MEDS ORDERED: guaiFENesin 600 MG TABLET.ER (FP) PO PRN (19:36)
[2024-05-13] MEDS ORDERED: IBUPROFEN 600 MG TABLET (FP) PO PRN (19:36)
[2024-05-13] MEDS ORDERED: BENZOCAINE/MENTHOL (CHLORASEPTIC ) LOZENGE MM PRN (19:36)
[2024-05-13] MEDS ORDERED: NALOXONE HCL 0.4 MG/ML VIAL IM PRN (19:36)
[2024-05-13] MEDS ORDERED: POLYETHYLENE GLYCOL (HEALTHYLAX) 3350 17 GM PACKET PO PRN (19:36)
[2024-05-13] MEDS ORDERED: NALOXONE (NARCAN) HCL 4 MG/0.1 ML SPRAY NS PRN (19:36)
[2024-05-13] MEDS ORDERED: BENZONATATE 200 MG CAPSULE PO PRN (19:36)
[2024-05-13] MEDS ORDERED: NICOTINE POLACRILEX 2 MG GUM BUC PRN (19:36)
[2024-05-13] MEDS ORDERED: LOPERAMIDE HCL 2 MG CAPSULE PO PRN (19:36)
[2024-05-13] MEDS ORDERED: MAG HYDROX/AL HYDROX/SIMETH 30 ML UNIT-DOSE CUP PO PRN (19:36)
[2024-05-13] MEDS ORDERED: MAGNESIUM HYDROX 2400MG/30ML ORAL SUSPENSION 30 ML CUP PO PRN (19:36)
[2024-05-13] MEDS ORDERED: IBUPROFEN 400 MG TABLET (FP) PO PRN (19:36)
[2024-05-13] MEDS ORDERED: ACETAMINOPHEN 325 MG TABLET (FP) PO PRN (19:36)
[2024-05-13] MEDS: THIAMINE 100 MG TABLET PO SCH (21:22)
[2024-05-13] MEDS: MELATONIN 5 MG TABLETS PO SCH (21:22)
[2024-05-13] MEDS: TUBERCULIN PPD 5 TU/0.1ML SYRINGE (IN PATIENT USE ONLY) ID ONE (21:44)
[2024-05-14 06:33] VITALS: BP 124/76; PULSE 62; RESP 16; TEMP 98.7
[2024-05-14] MEDS: methaDONE HCL 40 MG DISPERSABLE TABLET PO SCH (10:00)
[2024-05-14] MEDS: NICOTINE 14 MG/24 HOURS TOPICAL PATCH TD SCH (10:09)
[2024-05-14] MEDS: PRENATAL VITAMINS W/ FOLIC ACID TABLET (FP) PO SCH (10:09)
== END 2024-05-14 12:19 | disposition left against medical advice (07) | DRG 894 ==
LOC: YASAS 14:07 → Y3NR 20:45 → Y3W 05-14 11:21
PROVIDERS: ADMIT Allergy & Immunology; ATTEND Psychiatry & Neurology Pain Medicine
PROC: HZ42ZZZ Group Counseling for Substance Abuse Treatment, Cognitive-Behavioral (ICD-10-PCS; principal; 2024-05-13)
DX: F14.10 Cocaine abuse, uncomplicated (principal); F12.20 Cannabis dependence, uncomplicated; F17.210 Nicotine dependence, cigarettes, uncomplicated; Z21 Asymptomatic human immunodeficiency virus [HIV] infection status; H54.7 Unspecified visual loss; I10 Essential (primary) hypertension; L20.9 Atopic dermatitis, unspecified; N40.0 Benign prostatic hyperplasia without lower urinary tract symptoms; Z79.899 Other long term (current) drug therapy
CPT/HCPCS: 80305; 80307; 87811; 93005; 93010